=== PATIENT | female | born 1980 | race Caucasian/White ===

== ENCOUNTER 2019-03-11 20:23 | Inpatient (IN) | payer SELFPAY ==
[2019-03-11 21:10] VITALS: BMI 25.9
--- NOTE | 2019-03-11 23:54 | HP ---
COWS - Scale Resting Pulse: 0= [place] 80 or Below Sweatin=Flushed/Facial Moisture Restless Observation: 0= Sits Still Pupil Size: 0= Normal to Room Light Bone or Joint Aches: 4=Acute Joint/Muscle Pain Runny Nose/ Eye Tearin= Runny Nose/Eyes GI Upset > 30mins: 3= Vomiting/Diarrhea (vomiting x 6, diarrhea) Tremor Observation: 2= Slight Tremor Visible Yawning Observation: 0= None Anxiety or Irritability: 4=Extreme Anxiety Goose Flesh Skin: 0=Smooth Skin COWS Score: 17 CIWA Score Nausea/Vomitin Muscle Tremors: 3 Anxiety: 3 Agitation: 3 Paroxysmal Sweats: 1-Minimal Palms Moist Orientation: 1-Uncertain about Date Tacttile Disturbances: 0-None Auditory Disturbances: 0-None Visual Disturbances: 0-None Headache: 3-Moderate CIWA-Ar Total Score: 17 - Admission Criteria OASAS Guidelines: Admission for Medically Managed Detox: Requires at least one of the followin. CIWA greater than 12 2. Seizures within the past 24 hours 3. Delirium tremens within the past 24 hours 4. Hallucinations within the past 24 hours 5. Acute intervention needed for co occurring medical disorder 6. Acute intervention needed for co occurring psychiatric disorder 7. Severe withdrawal that cannot be handled at a lower level of care (continued vomiting, continued diarrhea, abnormal vital signs) requiring intravenous medication and/or fluids 8. Admission ROS [facility] Chief Complaint: Seeking admission to detox from alcohol and heroin Allergies/Adverse Reactions: Allergies Allergy/AdvReac Type Severity Reaction Status Date / Time Fish Containing Products Allergy Intermediate Rash Verified 03/11/19 22:34 No Known Drug Allergies Allergy Verified 03/11/19 22:34 History of Present Illness: 38 years old female with a long history of alcohol and heroin dependence is seeking admission to detox. Patient has been in previous detox and reports 5 years of sobriety. She has medical history of anemia, asthma and Hep C. She denies suicidal ideation at this time. Exam Limitations: No Limitations - Ebola screening Have you traveled outside of the country in the last 21 days: No Have you had contact with anyone from an Ebola affected area: No Have you been sick,other than usual withdrawal symptoms: No Do you have a fever: No - Review of Systems Constitutional: Chills, Loss of Appetite, Malaise, Changes in sleep EENT: reports: Blurred Vision, Sinus Pressure Respiratory: reports: No Symptoms reported Cardiac: reports: No Symptoms Reported GI: reports: Nausea, Poor Appetite, Poor Fluid Intake, Vomiting, Abdominal cramping : reports: No Symptoms Reported Musculoskeletal: reports: Back Pain, Muscle Pain Integumentary: reports: Dryness, Flushing Neuro: reports: Headache, Tremors Endocrine: reports: No Symptoms Reported Hematology: reports: No Symptoms Reported Psychiatric: reports: Mood/Affect Appropiate, Anxious Other Systems: Reviewed and Negative Patient History - Patient Medical History Hx Anemia: Yes (Not on medication) Hx Asthma: Yes (Albuterol) Hx Chronic Obstructive Pulmonary Disease (COPD): No Hx Cancer: No Hx Cardiac Disorders: No Hx Congestive Heart Failure: No Hx Hypertension: No Hx Hypercholesterolemia: No Hx Pacemaker: No HX Cerebrovascular Accident: No Hx Seizures: No Hx Dementia: No Hx Diabetes: No Hx Gastrointestinal Disorders: No Hx Liver Disease: No Hx Genitourinary Disorders: No Hx Sexually Transmitted Disorders: No Hx Renal Disease (ESRD): No Hx Thyroid Disease: No Hx Human Immunodeficiency Virus (HIV): No Hx Hepatitis C: Yes (NOT TREATMENT) Hx Depression: Yes (Not on medication) Hx Suicide Attempt: No (Denies suicidal ideation at this time) Hx Bipolar Disorder: No Hx Schizophrenia: No - Patient Surgical History Past Surgical History: Yes Hx Neurologic Surgery: No Hx Cataract Extraction: No Hx Cardiac Surgery: No Hx Lung Surgery: No Hx Breast Surgery: No Hx Breast Biopsy: No Hx Abdominal Surgery: No Hx Appendectomy: No Hx Cholecystectomy: Yes (AT 26 Y/O) Hx Genitourinary Surgery: No Hx Section: Yes (2003) Hx Orthopedic Surgery: No Anesthesia Reaction: No - PPD History Previous Implant?: Yes Documented Results: Negative w/proof Implanted On Prior R Admission?: Yes Date: 08/26/14 Results: 0 MM. PPD to be Administered?: Yes - Reproductive History Last Menstrual Period: 06/21/14 Patient : No - Smoking Cessation Smoking history: Current every day smoker Have you smoked in the past 12 months: Yes Aproximately how many cigarettes per day: 10 Hx Chewing Tobacco Use: No Initiated information on smoking cessation: Yes 'Breaking Loose' booklet given: 03/11/19 - Substance & Tx. History Hx Alcohol Use: Yes Hx Substance Use: Yes Substance Use Type: Alcohol, Cocaine, Opiates Hx Substance Use Treatment: Yes ([facility]) - Substances abused Heroin Substance route: Injection Frequency: Daily Amount used: 1 bundle Age of first use: 10 Date of last use: 03/11/19 Cocaine Substance route: Inhalation Frequency: Daily Amount used: 1 bundle Age of first use: 9 Date of last use: 03/11/19 Family Disease History - Family Disease History Family Disease History: Heart Disease: Mother (drug addict), Respiratory: Mother , Other: Father (drug addict), Mother Admission Physical Exam S - Vital Signs Vital Signs: Vital Signs - 24 hr 03/11/19 20:52 Temperature 96.9 F L Pulse Rate 75 Respiratory 16 Rate Blood Pressure 154/97 - Physical General Appearance: Yes: Moderate Distress, Tremorous, Irritable, Anxious HEENTM: Yes: EOMI, Normal ENT Inspection, Normal Voice, ASHLY Respiratory: Yes: Lungs Clear, Normal Breath Sounds, No Respiratory Distress Neck: Yes: Supple Breast: Yes: Breast Exam Deferred Cardiology: Yes: Regular Rhythm, Regular Rate Abdominal: Yes: Normal Bowel Sounds, Soft Genitourinary: Yes: Within Normal Limits Back: Yes: Normal Inspection Musculoskeletal: Yes: Back pain, Muscle Pain Extremities: Yes: Tremors Integumentary: Yes: Dry, Warm, Track Iglesias Lymphatic: Yes: Within Normal Limits - Addiitonal Findings: right neck - Diagnostic (1) Opioid dependence with withdrawal Current Visit: Yes Status: Chronic (2) Alcohol dependence with withdrawal Current Visit: Yes Status: Chronic Qualifiers: Complication of substance-induced condition: with unspecified complication Qualified Code(s): F10.239 - Alcohol dependence with withdrawal, unspecified (3) Anemia Current Visit: Yes Status: Chronic Qualifiers: Anemia type: unspecified type Qualified Code(s): D64.9 - Anemia, unspecified (4) Arthritis of knee Current Visit: No Status: Acute (5) Asthma Current Visit: Yes Status: Chronic Qualifiers: Asthma severity: mild Asthma persistence: intermittent (6) Cocaine dependence Current Visit: Yes Status: Chronic Qualifiers: Substance use status: uncomplicated Qualified Code(s): F14.20 - Cocaine dependence, uncomplicated (7) Hepatitis C Current Visit: Yes Status: Acute Qualifiers: Viral hepatitis chronicity: chronic (8) Nicotine dependence Current Visit: Yes Status: Chronic Qualifiers: Nicotine product type: cigarettes Substance use status: uncomplicated Qualified Code(s): F17.210 - Nicotine dependence, cigarettes, uncomplicated Cleared for Admission S - Detox or Rehab [facility] Level of Care: Medically Managed Detox Regimen/Protocol: Methadone/Librium Breathalyzer - Breathalyzer Breathalyzer: 0 Urine Drug Screen - Test Device Lot number: [id number] Expiration date: 11/17/20 - Control Is test valid?: Yes - Results Drug screen NEGATIVE: No Urine drug screen results: MIKKI-Cocaine, FEN-Fentanyl, MOP-Opiates, BZO- Benzodiazepines Inpatient Rehab Admission - Rehab Decision to Admit Inpatient rehab admission?: No
[2019-03-12] MEDS ORDERED: chlordiazePOXIDE HCL 25 MG CAPSULE PO ONE (00:06)
[2019-03-12] MEDS ORDERED: chlordiazePOXIDE HCL 25 MG CAPSULE PO PRN (00:06)
[2019-03-12] MEDS ORDERED: MAG HYDROX/AL HYDROX/SIMETH 30 ML UNIT-DOSE CUP PO PRN (00:06)
[2019-03-12] MEDS ORDERED: MAGNESIUM HYDROX 2400MG/30ML ORAL SUSPENSION 30 ML CUP PO PRN (00:06)
[2019-03-12] MEDS ORDERED: METHOCARBAMOL 500 MG TABLET PO PRN (00:06)
[2019-03-12] MEDS ORDERED: IBUPROFEN 400 MG TABLET (FP) PO PRN (00:06)
[2019-03-12] MEDS ORDERED: ACETAMINOPHEN 325 MG TABLET (FP) PO PRN ×2 (00:06)
[2019-03-12] MEDS ORDERED: BISMUTH SUBSALICYLATE 524 MG/30 ML UD PO PRN (00:06)
[2019-03-12] MEDS ORDERED: MENTHOL/PHENOL 1 EACH UD MM PRN (00:06)
[2019-03-12] MEDS ORDERED: MAGNESIUM CITRATE 300 ML BOTTLE PO PRN (00:06)
[2019-03-12] MEDS ORDERED: NICOTINE POLACRILEX 2 MG GUM BUC PRN (00:06)
[2019-03-12] MEDS ORDERED: cloNIDine HCL 0.1 MG TABLET PO PRN (00:06)
[2019-03-12] MEDS ORDERED: ALBUTEROL SO4 8 GM HFA INHALER IH PRN (00:13)
[2019-03-12] MEDS: chlordiazePOXIDE HCL 25 MG CAPSULE PO SCH ×4 (07:52→22:25)
[2019-03-12] MEDS: PRENATAL VITAMINS W/ FOLIC ACID TABLET (FP) PO SCH (10:35)
[2019-03-12] MEDS: NICOTINE 14 MG/24 HOURS TOPICAL PATCH TD SCH (10:35)
[2019-03-12] MEDS ORDERED: METHADONE HCL 10 MG TABLET (FOR DETOX USE ONLY) PO ONE (12:25)
--- NOTE | 2019-03-12 16:17 | PN ---
S CIWA - CIWA Score Nausea/Vomitin-Mild Nausea/No Vomiting Muscle Tremors: 3 Anxiety: 3 Agitation: 3 Paroxysmal Sweats: 3 Orientation: 0-Oriented Tacttile Disturbances: 0-None Auditory Disturbances: 0-None Visual Disturbances: 0-None Headache: 0-None Present CIWA-Ar Total Score: 13 BHS COWS - Scale Resting Pulse: 0= [place] 80 or Below Sweatin= Chills/Flushing Restless Observation: 3= Extraneous Movement Pupil Size: 0= Normal to Room Light Bone or Joint Aches: 2= Severe Diffuse Aches Runny Nose/ Eye Tearin= Runny Nose/Eyes GI Upset > 30mins: 2= Nausea/Diarrhea Tremor Observation of Outstretched Hands: 2= Slight Tremor Visible Yawning Observation: 0= None Anxiety or Irritability: 2=Irritable/Anxious Goose Flesh Skin: 0=Smooth Skin COWS Score: 14 BHS Progress Note (SOAP) Subjective: Patient stated his symptoms are controlled by medications and that he now experiences interrupted sleep. Objective: 03/12/19 16:16 Last Vital Signs Temp Pulse Resp BP Pulse Ox 98.1 F 75 18 132/82 03/12/19 14:52 03/12/19 14:52 03/12/19 14:52 03/12/19 14:52 No admission labs available for review Assessment: 03/12/19 16:16 Withdrawal symptoms Plan: Continue detox Encouraged PO water hydration
[2019-03-12] MEDS: THIAMINE HCL 100 MG TABLET (FP) PO SCH (21:30)
[2019-03-13] MEDS: chlordiazePOXIDE HCL 25 MG CAPSULE PO SCH ×4 (07:12→22:41)
[2019-03-13 09:53] LABS: HEMATOCRIT 35.1 % (32.4-45.2); HEMOGLOBIN 11.2 GM/dL (10.7-15.3); MCH 26.4 pg (25.7-33.7); MEAN CELL VOLUME 82.6 fl (80-96); MEAN PLT VOLUME 8.3 fl (7.5-11.1); PLATELET COUNT 299 K/MM3 (134-434); RBC 4.25 M/mm3 (3.60-5.2); RDW 16.7 % (11.6-15.6); WHITE BLOOD COUNT 5.7 K/mm3 (4.0-10.0)
[2019-03-13] MEDS ORDERED: METHADONE HCL 10 MG TABLET (FOR DETOX USE ONLY) PO ONE (10:00)
[2019-03-13] MEDS: PRENATAL VITAMINS W/ FOLIC ACID TABLET (FP) PO SCH (10:31)
[2019-03-13] MEDS: NICOTINE 14 MG/24 HOURS TOPICAL PATCH TD SCH (10:31)
[2019-03-13 10:35] LABS: ALBUMIN 2.6 g/dl (3.4-5.0); BILIRUBIN,TOTAL 0.2 mg/dL (0.2-1); CALCIUM 7.8 mg/dL (8.5-10.1); CREATININE 0.6 mg/dL (0.55-1.3); TOT PROT 5.9 g/dl (6.4-8.2)
--- NOTE | 2019-03-13 12:04 | PN ---
[facility] CIWA - CIWA Score Nausea/Vomitin-No Nausea/No Vomiting Muscle Tremors: 3 Anxiety: 3 Agitation: 3 Paroxysmal Sweats: 3 Orientation: 0-Oriented Tacttile Disturbances: 0-None Auditory Disturbances: 0-None Visual Disturbances: 0-None Headache: 0-None Present CIWA-Ar Total Score: 12 BHS COWS - Scale Resting Pulse: 0= [place] 80 or Below Sweatin=Flushed/Facial Moisture Restless Observation: 1= Difficult to Sit Still Pupil Size: 0= Normal to Room Light Bone or Joint Aches: 2= Severe Diffuse Aches Runny Nose/ Eye Tearin= Nasal Congestion GI Upset > 30mins: 0= None Tremor Observation of Outstretched Hands: 1= Tremor [place], Not Seen Yawning Observation: 2= >3x During Session Anxiety or Irritability: 2=Irritable/Anxious Goose Flesh Skin: 0=Smooth Skin COWS Score: 11 S Progress Note (SOAP) Subjective: restless sweats agitation interrupted sleep body aches Objective: 03/13/19 12:03 Vital Signs Temperature 96.8 F L 03/13/19 10:50 Pulse Rate 63 03/13/19 10:50 Respiratory Rate 18 03/13/19 10:50 Blood Pressure 118/72 03/13/19 10:50 O2 Sat by Pulse Oximetry (%) Laboratory Tests 03/11/19 03/13/19 03/13/19 22:14 07:50 07:50 WBC 5.7 RBC 4.25 Hgb 11.2 Hct 35.1 MCV 82.6 MCH 26.4 D MCHC 32.0 RDW 16.7 H Plt Count 299 D MPV 8.3 Sodium 142 Potassium 4.0 Chloride 111 H Carbon Dioxide 25 Anion Gap 5 L BUN 10 Creatinine 0.6 Est GFR (CKD-EPI)AfAm 132.14 Est GFR (CKD-EPI)NonAf 114.01 Random Glucose 86 Calcium 7.8 L Total Bilirubin 0.2 AST 81 H ALT 31 Alkaline Phosphatase 101 Total Protein 5.9 L Albumin 2.6 L POC Urine HCG, Qual Negative RPR Titer 03/13/19 07:50 WBC RBC Hgb Hct MCV MCH MCHC RDW Plt Count MPV Sodium Potassium Chloride Carbon Dioxide Anion Gap BUN Creatinine Est GFR (CKD-EPI)AfAm Est GFR (CKD-EPI)NonAf Random Glucose Calcium Total Bilirubin AST ALT Alkaline Phosphatase Total Protein Albumin POC Urine HCG, Qual RPR Titer Nonreactive labs noted aaox3 ambulating no acute distress Assessment: 03/13/19 12:04 withdrawal sx Plan: continue detox increase fluids
[2019-03-13] MEDS: MELATONIN 5 MG TABLETS PO PRN (22:41)
[2019-03-13] MEDS: THIAMINE HCL 100 MG TABLET (FP) PO SCH (22:43)
[2019-03-14] MEDS ORDERED: chlordiazePOXIDE HCL 10 MG CAPSULE PO PRN (05:00)
[2019-03-14] MEDS: chlordiazePOXIDE HCL 10 MG CAPSULE PO SCH ×4 (05:35→22:14)
[2019-03-14] MEDS ORDERED: METHADONE HCL 10 MG TABLET (FOR DETOX USE ONLY) PO ONE (10:00)
[2019-03-14] MEDS: PRENATAL VITAMINS W/ FOLIC ACID TABLET (FP) PO SCH (10:53)
[2019-03-14] MEDS: NICOTINE 14 MG/24 HOURS TOPICAL PATCH TD SCH (10:53)
--- NOTE | 2019-03-14 11:01 | PN ---
BHS Progress Note (SOAP) Subjective: irritable agitation sweats interrupted sleep body aches Objective: 03/14/19 11:03 Vital Signs Temperature 98.1 F 03/14/19 09:38 Pulse Rate 64 03/14/19 09:38 Respiratory Rate 18 03/14/19 09:38 Blood Pressure 111/57 L 03/14/19 09:38 O2 Sat by Pulse Oximetry (%) Laboratory Tests 03/11/19 03/13/19 03/13/19 22:14 07:50 07:50 WBC 5.7 RBC 4.25 Hgb 11.2 Hct 35.1 MCV 82.6 MCH 26.4 D MCHC 32.0 RDW 16.7 H Plt Count 299 D MPV 8.3 Sodium 142 Potassium 4.0 Chloride 111 H Carbon Dioxide 25 Anion Gap 5 L BUN 10 Creatinine 0.6 Est GFR (CKD-EPI)AfAm 132.14 Est GFR (CKD-EPI)NonAf 114.01 Random Glucose 86 Calcium 7.8 L Total Bilirubin 0.2 AST 81 H ALT 31 Alkaline Phosphatase 101 Total Protein 5.9 L Albumin 2.6 L POC Urine HCG, Qual Negative RPR Titer 03/13/19 07:50 WBC RBC Hgb Hct MCV MCH MCHC RDW Plt Count MPV Sodium Potassium Chloride Carbon Dioxide Anion Gap BUN Creatinine Est GFR (CKD-EPI)AfAm Est GFR (CKD-EPI)NonAf Random Glucose Calcium Total Bilirubin AST ALT Alkaline Phosphatase Total Protein Albumin POC Urine HCG, Qual RPR Titer Nonreactive aaox3 ambulating no acute distress Assessment: 03/14/19 11:03 withdrawal sx Plan: continue detox increase fluids
[2019-03-14] MEDS: THIAMINE HCL 100 MG TABLET (FP) PO SCH (22:14)
[2019-03-14] MEDS: MELATONIN 5 MG TABLETS PO PRN (22:14)
[2019-03-15] MEDS: chlordiazePOXIDE HCL 10 MG CAPSULE PO SCH ×2 (06:17→17:25)
[2019-03-15] MEDS ORDERED: METHADONE HCL 10 MG TABLET (FOR DETOX USE ONLY) PO ONE (10:00)
[2019-03-15] MEDS: PRENATAL VITAMINS W/ FOLIC ACID TABLET (FP) PO SCH (10:20)
[2019-03-15] MEDS: NICOTINE 14 MG/24 HOURS TOPICAL PATCH TD SCH (10:20)
--- NOTE | 2019-03-15 11:21 | PN ---
BHS Progress Note (SOAP) Subjective: irritable agitation sweats Objective: 03/15/19 11:21 Vital Signs Temperature 98.3 F 03/15/19 09:09 Pulse Rate 64 03/15/19 09:09 Respiratory Rate 18 03/15/19 09:09 Blood Pressure 110/70 03/15/19 09:09 O2 Sat by Pulse Oximetry (%) aaox3 ambulating no acute distress Assessment: 03/15/19 11:22 mild withdrawal sx Plan: continue detox increase fluids d/c in am
[2019-03-15] MEDS: hydrOXYzine PAMOATE 25 MG CAPSULE (FP) PO PRN ×2 (14:07→22:39)
[2019-03-15] MEDS ORDERED: IBUPROFEN 600 MG TABLET (FP) PO PRN (17:57)
[2019-03-15] MEDS: THIAMINE HCL 100 MG TABLET (FP) PO SCH (22:39)
[2019-03-15] MEDS: MELATONIN 5 MG TABLETS PO PRN (22:39)
[2019-03-16] MEDS ORDERED: METHADONE HCL 5 MG TABLET (FOR DETOX USE ONLY) PO ONE (06:00)
[2019-03-16] MEDS: chlordiazePOXIDE HCL 10 MG CAPSULE PO SCH (06:09)
--- NOTE | 2019-03-16 09:22 | DS ---
[facility] Detox Discharge Summary Admission Date: 03/12/19 Discharge Date: 03/16/19 - History Present History: Alcohol Dependence, Cocaine Dependence, Opioid Dependence, Sedative Dependence - Physical Exam Results Vital Signs: Vital Signs Temperature 96.1 F L 03/16/19 07:52 Pulse Rate 74 03/16/19 07:52 Respiratory Rate 16 03/16/19 07:52 Blood Pressure 121/66 03/16/19 07:52 O2 Sat by Pulse Oximetry (%) - Treatment Hospital Course: Detox Protocol Followed, Detoxed Safely, Responded well, Discharged Condition Good, Rehab Referral Accepted - Medication Discharge Medications: Ambulatory Orders Albuterol Sulfate Inhaler - [Ventolin HFA Inhaler -] 2 inh IH Q4H PRN #0 inh 01/27 Sertraline HCl [Zoloft -] 50 mg PO DAILY #30 tablet 08/25/14 traZODone HCL [Desyrel -] 50 mg PO HS #30 tablet 08/25/14 - Diagnosis (1) Hepatitis C Current Visit: Yes Status: Acute Qualifiers: Viral hepatitis chronicity: chronic (2) Alcohol dependence with withdrawal Current Visit: Yes Status: Chronic Qualifiers: Complication of substance-induced condition: with unspecified complication Qualified Code(s): F10.239 - Alcohol dependence with withdrawal, unspecified (3) Anemia Current Visit: Yes Status: Chronic Qualifiers: Anemia type: unspecified type Qualified Code(s): D64.9 - Anemia, unspecified (4) Asthma Current Visit: Yes Status: Chronic Qualifiers: Asthma severity: mild Asthma persistence: intermittent (5) Cocaine dependence Current Visit: Yes Status: Chronic Qualifiers: Substance use status: uncomplicated Qualified Code(s): F14.20 - Cocaine dependence, uncomplicated (6) Nicotine dependence Current Visit: Yes Status: Chronic Qualifiers: Nicotine product type: cigarettes Substance use status: uncomplicated Qualified Code(s): F17.210 - Nicotine dependence, cigarettes, uncomplicated (7) Opioid dependence with withdrawal Current Visit: Yes Status: Chronic (8) Arthritis of knee Current Visit: No Status: Acute (9) MDD (major depressive disorder) Current Visit: No Status: Acute (10) Sedative dependence Current Visit: No Status: Acute - AMA Did Patient Leave Against Medical Advice: No ([facility] outpatient rehab.)
[2019-03-16 10:02] VITALS: BP 102/66; PULSE 60; TEMP 98.1
== END 2019-03-16 09:32 | disposition home or self-care (01) | DRG 773 ==
LOC: YASAS 20:23 → Y6N 03-12 00:03
PROVIDERS: ADMIT Surgery; ATTEND Surgery
PROC: HZ2ZZZZ Detoxification Services for Substance Abuse Treatment (ICD-10-PCS; principal; 2019-03-12)
DX: F11.23 Opioid dependence with withdrawal (principal); F10.230 Alcohol dependence with withdrawal, uncomplicated; F13.230 Sedative, hypnotic or anxiolytic dependence with withdrawal, uncomplicated; F14.20 Cocaine dependence, uncomplicated; F17.210 Nicotine dependence, cigarettes, uncomplicated; F33.9 Major depressive disorder, recurrent, unspecified; D64.9 Anemia, unspecified; J45.22 Mild intermittent asthma with status asthmaticus; B18.2 Chronic viral hepatitis C
CPT/HCPCS: 36415; 80053; 81025; 85027; 86593

== ENCOUNTER 2019-09-17 10:21 | Inpatient (IN) | payer OTHER ==
[2019-09-17 11:20] VITALS: BMI 25.3
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
[2019-09-17] MEDS ORDERED: MAGNESIUM HYDROX 2400MG/30ML ORAL SUSPENSION 30 ML CUP PO PRN (12:03)
[2019-09-17] MEDS ORDERED: MAGNESIUM CITRATE 300 ML BOTTLE PO PRN (12:03)
[2019-09-17] MEDS ORDERED: MAG HYDROX/AL HYDROX/SIMETH 30 ML UNIT-DOSE CUP PO PRN (12:03)
[2019-09-17] MEDS ORDERED: ACETAMINOPHEN 325 MG TABLET (FP) PO PRN ×2 (12:03)
[2019-09-17] MEDS ORDERED: MENTHOL/PHENOL 1 EACH UD MM PRN (12:03)
[2019-09-17] MEDS ORDERED: MELATONIN 5 MG TABLETS PO PRN (12:03)
[2019-09-17] MEDS ORDERED: BISMUTH SUBSALICYLATE 524 MG/30 ML UD PO PRN (12:03)
[2019-09-17] MEDS ORDERED: ALBUTEROL SO4 8 GM HFA INHALER IH PRN (12:04)
[2019-09-17] MEDS: diazePAM 5 MG TABLET PO SCH ×2 (12:59→22:09)
[2019-09-17] MEDS: BUPRENORPHINE/NALOXONE 8 MG/2 MG FILM PACKET SL SCH (13:00)
[2019-09-17] MEDS: THIAMINE HCL 100 MG TABLET (FP) PO SCH (22:09)
[2019-09-17] MEDS: IBUPROFEN 400 MG TABLET (FP) PO PRN (22:11)
[2019-09-17] MEDS: hydrOXYzine PAMOATE 25 MG CAPSULE (FP) PO PRN (22:11)
[2019-09-18] MEDS: diazePAM 5 MG TABLET PO SCH (05:26)
[2019-09-18] MEDS: IBUPROFEN 400 MG TABLET (FP) PO PRN ×2 (05:27→17:06)
[2019-09-18] MEDS ORDERED: diazePAM 5 MG TABLET PO SCH (06:00)
[2019-09-18 10:11] LABS: HEMATOCRIT 33.7 % (32.4-45.2); HEMOGLOBIN 10.9 GM/dL (10.7-15.3); MCH 28.4 pg (25.7-33.7); MCHC 32.3 g/dl (32.0-36.0); MEAN PLT VOLUME 8.1 fl (7.5-11.1); PLATELET COUNT 311 K/MM3 (134-434); RBC 3.83 M/mm3 (3.60-5.2); RDW 15.1 % (11.6-15.6)
--- NOTE | 2019-09-18 10:12 | PN ---
S CIWA - CIWA Score Nausea/Vomitin-Mild Nausea/No Vomiting Muscle Tremors: 3 Anxiety: 4-Mod. Anxious/Guarded Agitation: 3 Paroxysmal Sweats: 1-Minimal Palms Moist Orientation: 0-Oriented Tacttile Disturbances: 0-None Auditory Disturbances: 0-None Visual Disturbances: 0-None Headache: 1-Very Mild CIWA-Ar Total Score: 13 B[facility] Progress Note (SOAP) Subjective: 39 years old female admitted on 09/17/19 for alcohol withdrawal sx management treated with valium detox regimen patient is in suboxone program last fill 21 days of suboxone 8-2mg sl tid on positive suboxone urine tox resume suboxone 8-2mg sl od resting on bed feeling tired ate breakfast tolerated food and fluid well Objective: 09/18/19 10:12 Vital Signs Temperature 96.9 F L 09/18/19 09:08 Pulse Rate 80 09/18/19 09:08 Respiratory Rate 18 09/18/19 09:08 Blood Pressure 118/62 09/18/19 09:08 O2 Sat by Pulse Oximetry (%) 09/18/19 10:12 lab pending Assessment: 09/18/19 10:12alcohol withdrawal sx management suboxone maintenance program Plan: continue valium detox regimen suboxone 8-2mg sl once daily monitoring toleration may increase as per patient tolerance
[2019-09-18] MEDS: BUPRENORPHINE/NALOXONE 8 MG/2 MG FILM PACKET SL SCH (10:26)
[2019-09-18] MEDS: PRENATAL VITAMINS W/ FOLIC ACID TABLET (FP) PO SCH (10:26)
[2019-09-18] MEDS: diazePAM 5 MG TABLET PO PRN ×2 (10:28→21:55)
[2019-09-18 10:58] LABS: ALBUMIN 2.6 g/dl (3.4-5.0); BILIRUBIN,TOTAL 0.2 mg/dL (0.2-1); BLOOD UREA NITROGEN 11.5 mg/dL (7-18); CALCIUM 8.1 mg/dL (8.5-10.1); CREATININE 0.8 mg/dL (0.55-1.3); POTASSIUM 3.3 mmol/L (3.5-5.1); TOT PROT 6.1 g/dl (6.4-8.2)
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
[2019-09-18] MEDS: CEPHALEXIN MONOHYDRATE 500 MG CAPSULE (UD) PO SCH ×2 (13:42→21:55)
[2019-09-18] MEDS: hydrOXYzine PAMOATE 25 MG CAPSULE (FP) PO PRN (17:11)
[2019-09-18] MEDS ORDERED: diazePAM 5 MG TABLET PO ONE (18:00)
[2019-09-18] MEDS: THIAMINE HCL 100 MG TABLET (FP) PO SCH (21:55)
[2019-09-18] MEDS ORDERED: traZODone HCL 50 MG TABLET (FP) PO SCH (22:00)
[2019-09-19] MEDS ORDERED: diazePAM 5 MG TABLET PO ONE (06:00)
[2019-09-19 09:20] VITALS: BP 98/67; PULSE 84; TEMP 97.6
[2019-09-19] MEDS: PRENATAL VITAMINS W/ FOLIC ACID TABLET (FP) PO SCH (10:57)
[2019-09-19] MEDS: BUPRENORPHINE/NALOXONE 8 MG/2 MG FILM PACKET SL SCH (10:57)
[2019-09-19] MEDS: CEPHALEXIN MONOHYDRATE 500 MG CAPSULE (UD) PO SCH (10:57)
--- NOTE | 2019-09-19 11:27 | DS ---
[facility] Detox Discharge Summary Admission Date: 09/17/19 Discharge Date: 09/19/19 - History Present History: Alcohol Dependence Additional Comments: 39 years old female admitted on 09/17/19 for alcohol withdrawal sx management treated with valium detox regimen respiratory clear lung bilaterally on auscultation skin warm and dry ate breakfast no trouble chewing swallowing ambulating from bed to bathroom steady gait - Physical Exam Results Vital Signs: Vital Signs Temperature 97.6 F 09/19/19 09:19 Pulse Rate 84 09/19/19 09:19 Respiratory Rate 16 09/19/19 09:19 Blood Pressure 98/67 09/19/19 09:19 O2 Sat by Pulse Oximetry (%) Pertinent Admission Physical Exam Findings: alcohol withdrawal sx Laboratory Last Values WBC 7.0 K/mm3 (4.0-10.0) 09/18/19 07:30 RBC 3.83 M/mm3 (3.60-5.2) 09/18/19 07:30 Hgb 10.9 GM/dL (10.7-15.3) 09/18/19 07:30 Hct 33.7 % (32.4-45.2) 09/18/19 07:30 MCV 88.0 fl (80-96) 09/18/19 07:30 MCH 28.4 pg (25.7-33.7) 09/18/19 07:30 MCHC 32.3 g/dl (32.0-36.0) 09/18/19 07:30 RDW 15.1 % (11.6-15.6) 09/18/19 07:30 Plt Count 311 K/MM3 (134-434) 09/18/19 07:30 MPV 8.1 fl (7.5-11.1) 09/18/19 07:30 Sodium 142 mmol/L (136-145) 09/18/19 07:30 Potassium 3.3 mmol/L (3.5-5.1) L 09/18/19 07:30 Chloride 104 mmol/L (98-107) 09/18/19 07:30 Carbon Dioxide 32 mmol/L (21-32) 09/18/19 07:30 Anion Gap 6 MMOL/L (8-16) L 09/18/19 07:30 BUN 11.5 mg/dL (7-18) 09/18/19 07:30 Creatinine 0.8 mg/dL (0.55-1.3) 09/18/19 07:30 Est GFR (CKD-EPI)AfAm 106.13 09/18/19 07:30 Est GFR (CKD-EPI)NonAf 91.57 09/18/19 07:30 Random Glucose 74 mg/dL (74-106) 09/18/19 07:30 Calcium 8.1 mg/dL (8.5-10.1) L 09/18/19 07:30 Total Bilirubin 0.2 mg/dL (0.2-1) 09/18/19 07:30 AST 71 U/L (15-37) H 09/18/19 07:30 ALT 20 U/L (13-61) 09/18/19 07:30 Alkaline Phosphatase 87 U/L (45-117) 09/18/19 07:30 Total Protein 6.1 g/dl (6.4-8.2) L 09/18/19 07:30 Albumin 2.6 g/dl (3.4-5.0) L 09/18/19 07:30 POC Urine HCG, Qual Negative 09/17/19 11:25 HIV 1&2 Antibody Screen Negative 09/18/19 07:30 HIV P24 Antigen Negative 09/18/19 07:30 lab noted repeat K+ continue ca++ supplement - Treatment Hospital Course: Detox Protocol Followed, Detoxed Safely, Responded well, Discharged Condition Good, Rehab Referral Accepted Patient has Accepted [facility] - Medication Discharge Medications: Ambulatory Orders Albuterol Sulfate Inhaler - [Ventolin HFA Inhaler -] 2 inh IH Q4H PRN #0 inh 01/27 Sertraline HCl [Zoloft -] 50 mg PO DAILY #30 tablet 08/25/14 traZODone HCL [Desyrel -] 50 mg PO HS #30 tablet 08/25/14 Buprenorphine/Naloxone [Suboxone 8Mg/2Mg Sl Film -] 1 each SL DAILY 09/17/19 Gabapentin [Neurontin -] 300 mg PO Q8H 09/17/19 - Diagnosis (1) Alcohol dependence with withdrawal Current Visit: Yes Status: Acute Qualifiers: Complication of substance-induced condition: with unspecified complication Qualified Code(s): F10.239 - Alcohol dependence with withdrawal, unspecified (2) Nicotine dependence Current Visit: Yes Status: Acute Qualifiers: Nicotine product type: cigarettes Substance use status: in withdrawal Qualified Code(s): F17.213 - Nicotine dependence, cigarettes, with withdrawal (3) Substance induced mood disorder Current Visit: Yes Status: Suspected (4) Hepatitis C Current Visit: Yes Status: Chronic Qualifiers: Viral hepatitis chronicity: carrier Qualified Code(s): B18.2 - Chronic viral hepatitis C (5) Asthma Current Visit: Yes Status: Chronic Qualifiers: Asthma severity: mild Asthma persistence: intermittent Asthma complication type: with status asthmaticus Qualified Code(s): J45.22 - Mild intermittent asthma with status asthmaticus - AMA Did Patient Leave Against Medical Advice: No CIWA Score - CIWA Score Nausea/Vomitin-No Nausea/No Vomiting Muscle Tremors: 2 Anxiety: 3 Agitation: 2 Paroxysmal Sweats: No Perspiration Orientation: 0-Oriented Tacttile Disturbances: 0-None Auditory Disturbances: 0-None Visual Disturbances: 0-None Headache: 0-None Present CIWA-Ar Total Score: 7
== END 2019-09-19 12:34 | disposition other institution (70) | DRG 773 ==
LOC: YASAS 10:21 → Y3N 12:17
PROVIDERS: ADMIT Allergy & Immunology; ATTEND Allergy & Immunology
PROC: HZ2ZZZZ Detoxification Services for Substance Abuse Treatment (ICD-10-PCS; principal; 2019-09-17)
DX: F10.230 Alcohol dependence with withdrawal, uncomplicated (principal); F11.20 Opioid dependence, uncomplicated; F14.20 Cocaine dependence, uncomplicated; F17.210 Nicotine dependence, cigarettes, uncomplicated; F19.24 Other psychoactive substance dependence with psychoactive substance-induced mood disorder; F32.9 Major depressive disorder, single episode, unspecified; J45.22 Mild intermittent asthma with status asthmaticus; G47.00 Insomnia, unspecified; D64.9 Anemia, unspecified; B18.2 Chronic viral hepatitis C; Z96.653 Presence of artificial knee joint, bilateral; Z90.49 Acquired absence of other specified parts of digestive tract; Z91.013 Allergy to seafood; Z91.19 Patient's noncompliance with other medical treatment and regimen
CPT/HCPCS: 36415; 80053; 81025; 85027; 86593; 87389

== ENCOUNTER 2019-09-19 12:47 | Inpatient (IN) | payer OTHER ==
--- NOTE | 2019-09-19 11:34 | HP ---
[facility] Rehab Assess/Revision - Admission History Admitted to Rehab from: [facility] Date of Admission to Rehab: 09/19/19 - Findings Detox History & Physical reviewed: Yes Concur with findings: Yes Comments/Additional Findings: transferred from detox to rehab admission as per protocol Inpatient Rehab Admission - Rehab Decision to Admit Inpatient rehab admission?: Yes - Initial Determination Are CD services needed?: Yes Free of communicable disease: Yes Not in need of hospitalization: Yes - Rehab Admission Criteria Previous failed treatment: Yes Poor recovery environment: Yes Comorbidities: Yes Lacks judgement: Yes Patient is meeting Inpatient Rehab admission criteria:: Yes
[~2019-09-19 12:47] MED LIST: ACETAMINOPHEN 325 MG TABLET (FP) PO PRN; ALBUTEROL SO4 8 GM HFA INHALER IH PRN; LOPERAMIDE HCL 2 MG CAPSULE PO PRN; MAG HYDROX/AL HYDROX/SIMETH 30 ML UNIT-DOSE CUP PO PRN; MAGNESIUM CITRATE 300 ML BOTTLE PO PRN; MAGNESIUM HYDROX 2400MG/30ML ORAL SUSPENSION 30 ML CUP PO PRN; MENTHOL/PHENOL 1 EACH UD MM PRN; P-EPHED 60MG/TRIPROLIDI 2.5MG TABLET PO PRN; guaiFENesin 200 MG/10 ML 10 ML UNIT-DOSE CUPS PO PRN
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
[2019-09-19] MEDS: THIAMINE HCL 100 MG TABLET (FP) PO SCH (21:42)
[2019-09-19] MEDS: traZODone HCL 50 MG TABLET (FP) PO SCH (21:43)
[2019-09-19] MEDS: TOLNAFTATE 1% CREAM 15 GM TUBE TP SCH (21:43)
[2019-09-19] MEDS: MELATONIN 5 MG TABLETS PO PRN (21:45)
[2019-09-19] MEDS: CALCIUM 250MG/VIT-D 125 UNITS 1 COMBO TABLET PO SCH (21:46)
[2019-09-20] MEDS: TOLNAFTATE 1% CREAM 15 GM TUBE TP SCH ×2 (09:59→21:30)
[2019-09-20] MEDS: PRENATAL VITAMINS W/ FOLIC ACID TABLET (FP) PO SCH (09:59)
[2019-09-20] MEDS: BUPRENORPHINE/NALOXONE 8 MG/2 MG FILM PACKET SL SCH (09:59)
[2019-09-20] MEDS: IBUPROFEN 400 MG TABLET (FP) PO PRN (10:01)
[2019-09-20] MEDS ORDERED: PT OWN MED DRAWER 7, Y5N ONE ×2 (10:02→15:48)
[2019-09-20] MEDS: CALCIUM 250MG/VIT-D 125 UNITS 1 COMBO TABLET PO SCH ×2 (11:00→21:30)
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
[2019-09-20] MEDS: traZODone HCL 50 MG TABLET (FP) PO SCH (21:28)
[2019-09-20] MEDS: THIAMINE HCL 100 MG TABLET (FP) PO SCH (21:28)
[2019-09-21] MEDS ORDERED: PT OWN MED DRAWER 7, Y5N ONE (08:39)
[2019-09-21] MEDS: CALCIUM 250MG/VIT-D 125 UNITS 1 COMBO TABLET PO SCH ×2 (09:26→21:34)
[2019-09-21] MEDS: PRENATAL VITAMINS W/ FOLIC ACID TABLET (FP) PO SCH (09:26)
[2019-09-21] MEDS: BUPRENORPHINE/NALOXONE 8 MG/2 MG FILM PACKET SL SCH (09:27)
[2019-09-21] MEDS: TOLNAFTATE 1% CREAM 15 GM TUBE TP SCH ×2 (09:28→21:35)
[2019-09-21] MEDS: IBUPROFEN 400 MG TABLET (FP) PO PRN (18:16)
[2019-09-21] MEDS: MELATONIN 5 MG TABLETS PO PRN (21:32)
[2019-09-21] MEDS: THIAMINE HCL 100 MG TABLET (FP) PO SCH (21:32)
[2019-09-21] MEDS: traZODone HCL 50 MG TABLET (FP) PO SCH (21:32)
[2019-09-22] MEDS ORDERED: PT OWN MED DRAWER 7, Y5N ONE ×2 (08:13→22:29)
[2019-09-22] MEDS: CALCIUM 250MG/VIT-D 125 UNITS 1 COMBO TABLET PO SCH ×2 (09:55→21:48)
[2019-09-22] MEDS: PRENATAL VITAMINS W/ FOLIC ACID TABLET (FP) PO SCH (09:58)
[2019-09-22] MEDS: BUPRENORPHINE/NALOXONE 8 MG/2 MG FILM PACKET SL SCH (09:58)
[2019-09-22] MEDS: TOLNAFTATE 1% CREAM 15 GM TUBE TP SCH ×2 (09:58→21:48)
[2019-09-22] MEDS: IBUPROFEN 400 MG TABLET (FP) PO PRN ×2 (10:00→21:52)
[2019-09-22] MEDS: THIAMINE HCL 100 MG TABLET (FP) PO SCH (21:48)
[2019-09-22] MEDS: traZODone HCL 50 MG TABLET (FP) PO SCH (21:48)
[2019-09-23] MEDS: PRENATAL VITAMINS W/ FOLIC ACID TABLET (FP) PO SCH (09:43)
[2019-09-23] MEDS: BUPRENORPHINE/NALOXONE 8 MG/2 MG FILM PACKET SL SCH (09:43)
[2019-09-23] MEDS: TOLNAFTATE 1% CREAM 15 GM TUBE TP SCH ×2 (09:43→21:26)
[2019-09-23] MEDS: CALCIUM 250MG/VIT-D 125 UNITS 1 COMBO TABLET PO SCH ×2 (09:43→21:26)
[2019-09-23] MEDS: IBUPROFEN 400 MG TABLET (FP) PO PRN ×2 (09:45→21:25)
[2019-09-23] MEDS: traZODone HCL 50 MG TABLET (FP) PO SCH (21:23)
[2019-09-23] MEDS: THIAMINE HCL 100 MG TABLET (FP) PO SCH (21:24)
[2019-09-23] MEDS: MELATONIN 5 MG TABLETS PO PRN (21:24)
[2019-09-24] MEDS ORDERED: PT OWN MED DRAWER 7, Y5N ONE ×2 (09:08→18:31)
[2019-09-24] MEDS: PRENATAL VITAMINS W/ FOLIC ACID TABLET (FP) PO SCH (09:57)
[2019-09-24] MEDS: BUPRENORPHINE/NALOXONE 8 MG/2 MG FILM PACKET SL SCH (09:58)
[2019-09-24] MEDS: CALCIUM 250MG/VIT-D 125 UNITS 1 COMBO TABLET PO SCH ×2 (09:58→21:11)
[2019-09-24] MEDS: TOLNAFTATE 1% CREAM 15 GM TUBE TP SCH ×2 (09:58→21:12)
[2019-09-24] MEDS: IBUPROFEN 400 MG TABLET (FP) PO PRN ×2 (09:59→21:13)
[2019-09-24] MEDS: THIAMINE HCL 100 MG TABLET (FP) PO SCH (21:11)
[2019-09-24] MEDS: MELATONIN 5 MG TABLETS PO PRN (21:11)
[2019-09-24] MEDS: traZODone HCL 50 MG TABLET (FP) PO SCH (21:12)
[2019-09-25] MEDS ORDERED: hydrOXYzine PAMOATE 25 MG CAPSULE (FP) PO PRN (01:36)
[2019-09-25] MEDS: IBUPROFEN 400 MG TABLET (FP) PO PRN ×2 (07:40→21:50)
[2019-09-25] MEDS ORDERED: PT OWN MED DRAWER 7, Y5N ONE ×2 (08:34→19:12)
[2019-09-25] MEDS: TOLNAFTATE 1% CREAM 15 GM TUBE TP SCH ×2 (09:42→21:50)
[2019-09-25] MEDS: BUPRENORPHINE/NALOXONE 8 MG/2 MG FILM PACKET SL SCH (09:42)
[2019-09-25] MEDS: CALCIUM 250MG/VIT-D 125 UNITS 1 COMBO TABLET PO SCH ×2 (09:42→21:49)
[2019-09-25] MEDS: PRENATAL VITAMINS W/ FOLIC ACID TABLET (FP) PO SCH (09:42)
--- NOTE | 2019-09-25 13:01 | PN ---
S Progress Note Note: Patient c/o b/l shoulder pain due to chronic arthritis. States pain level 8/10- dull [id number]. Vital Signs Period Temp Pulse Resp BP Sys/Vidal Pulse Ox Last 24 Hr 97.9 F 76 18 109/70 Laboratory Tests 09/20/19 09:00 Potassium 4.0 AST 92 H PE: alert and oriented x 3 skin warm and dry +perrla, eoms intact bl ext no swelling of upper extremities, +rom however c/o discomfort with hyperextension of arms in circular motion ble trace edema, amb ad jericho, full rom A/P: shoulder pain d/t OA will order lidocaine patch to both shoulders daily and remove hs monitor clinically
[2019-09-25] MEDS: LIDOCAINE 5% TOPICAL PATCH TP SCH (14:06)
[2019-09-25] MEDS: LIDOCAINE PATCH REMOVAL MC SCH (21:49)
[2019-09-25] MEDS: THIAMINE HCL 100 MG TABLET (FP) PO SCH (21:49)
[2019-09-25] MEDS: traZODone HCL 50 MG TABLET (FP) PO SCH (21:49)
[2019-09-25] MEDS: MELATONIN 5 MG TABLETS PO PRN (21:50)
[2019-09-26] MEDS: PRENATAL VITAMINS W/ FOLIC ACID TABLET (FP) PO SCH (10:03)
[2019-09-26] MEDS: CALCIUM 250MG/VIT-D 125 UNITS 1 COMBO TABLET PO SCH ×2 (10:03→21:07)
[2019-09-26] MEDS: TOLNAFTATE 1% CREAM 15 GM TUBE TP SCH ×2 (10:04→21:07)
[2019-09-26] MEDS: LIDOCAINE 5% TOPICAL PATCH TP SCH (10:04)
[2019-09-26] MEDS: BUPRENORPHINE/NALOXONE 8 MG/2 MG FILM PACKET SL SCH (10:52)
[2019-09-26] MEDS ORDERED: COLLOIDAL OATMEAL 1 BAR EACH TP PRN (11:50)
--- NOTE | 2019-09-26 12:05 | PN ---
Psychiatric Progress Note Vital Signs: Vital Signs Period Temp Pulse Resp BP Sys/Vidal Pulse Ox Last 24 Hr 98.0 F 73 18-18 102/67 Date of Session: 09/26/19 Chief Complaint:: " I still can't sleep." HPI: Patient admitted to [facility] for alcohol and cocaine use disorder. Consultation ordered for insomnia. ROS: Patient is coherent, alert + oriented X3. Current Medications: Active Medications Generic Name Dose Route Start Last Admin Trade Name Estuardo PRN Reason Stop Dose Admin Acetaminophen 650 mg 09/19/19 11:34 09/25/19 01:55 Tylenol - PO 650 mg Q4H PRN Administration FEVER Al Hydroxide/Mg Hydroxide 30 ml 09/19/19 11:34 Mylanta Oral Suspension - PO Q6H PRN DYSPEPSIA Albuterol Sulfate 2 puff 09/19/19 11:35 Ventolin Hfa Inhaler - IH Q4H PRN SHORTNESS OF BREATH Buprenorphine/Naloxone 1 each 09/26/19 10:15 09/26/19 10:52 Suboxone 8 Mg/2 Mg Film Packet SL 10/03/19 10:14 1 each DAILY RAMBO Administration Calcium/Vitamin D 1 tab 09/19/19 22:00 09/26/19 10:03 Oscal 250 Mg+D - PO 1 tab BID RAMBO Administration Colloidal Oatmeal 1 applic 09/26/19 11:50 Aveeno Soap - TP DAILY PRN HYGEINE Eucalyptus/Menthol/Phenol/Sorbitol 1 each 09/19/19 11:34 Cepastat Lozenge - MM Q4H PRN SORE THROAT Guaifenesin 10 ml 09/19/19 11:34 Robitussin - PO Q6H PRN COUGH Hydroxyzine Pamoate 25 mg 09/25/19 01:36 09/25/19 01:56 Vistaril - PO 25 mg Q4H PRN Administration FOR ITCHING Ibuprofen 400 mg 09/19/19 11:34 09/25/19 21:50 Motrin - PO 400 mg Q6H PRN Administration Pain level 4-6 Lidocaine 2 patch 09/25/19 13:15 09/26/19 10:04 Lidoderm Patch - TP 2 patch DAILY RAMBO Administration Loperamide HCl 4 mg 09/19/19 11:34 Imodium - PO Q6H PRN DIARRHEA Magnesium Citrate 300 ml 09/19/19 11:34 Citroma - PO Q48H PRN CONSTIPATION Magnesium Hydroxide 30 ml 09/19/19 11:34 Milk Of Magnesia - PO DAILY PRN CONSTIPATION Melatonin 5 mg 09/19/19 22:00 09/25/19 21:50 Melatonin PO 5 mg HS PRN Administration INSOMNIA Miscellaneous 1 each 09/25/19 22:00 09/25/19 21:49 Lidoderm Patch Removal MC 1 each DAILY@2200 RAMBO Administration Multivit/Folic Acid/Iron 1 tab 09/20/19 10:00 09/26/19 10:03 Vitamins (Sjr) - PO 1 tab DAILY RAMBO Administration Pseudoephedrine/Triprolidine 1 combo 09/19/19 11:34 Actifed - PO TID PRN NASAL CONGESTION Thiamine HCl 100 mg 09/19/19 22:00 09/25/19 21:49 Vitamin B1 - PO 100 mg HS RAMBO Administration Tolnaftate 1 applic 09/19/19 22:00 09/26/19 10:04 Tinactin 1% Cream - TP 1 applic BID RAMBO Administration Trazodone HCl 50 mg 09/19/19 22:00 09/25/19 21:49 Desyrel - PO 50 mg HS RAMBO Administration Medication(s) Change(s): Yes. will d/c trazodone 50mg HS + Belsomra 10mg HS + Melatonin 10mg HS. Current Side Effect: No Lab tests ordered: No Lab tests reviewed: Yes Provider note:: Patient reports poor sleep despite accepting trazodone 50mg HS. States that the trazodone is ineffective. Will order Belsomra 10mg and Melatonin 10mg. Patient educated on the importance of proper sleep hygiene. Benefits and side effects discussed. Verbal consent given. Total face to face time:: 25 Mental Status Exam - Mental Status Exam Alert and Oriented to: Time, Place, Person Cognitive Function: Good Patient Appearance: Well Groomed Mood: Euthymic Affect: Mood Congruent Patient Behavior: Appropriate, Cooperative Speech Pattern: Clear, Appropriate Voice Loudness: Normal Thought Process: Goal Oriented Thought Disorder: Not Present Hallucinations: Denies Suicidal Ideation: Denies Homicidal Ideation: Denies Insight/Judgement: Poor Sleep: Poorly Appetite: Fair Muscle strength/Tone: Normal Gait/Station: Normal Psychiatric Treatment Plan - Problem List (1) Insomnia Current Visit: Yes (2) Alcohol use disorder Current Visit: Yes (3) Cocaine use disorder Current Visit: Yes (4) Mood disorder Current Visit: Yes (5) Nicotine dependence Current Visit: Yes Qualifiers: Nicotine product type: cigarettes Substance use status: in withdrawal Qualified Code(s): F17.213 - Nicotine dependence, cigarettes, with withdrawal (6) Substance induced mood disorder Current Visit: Yes
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
--- NOTE | 2019-09-26 14:21 | PN ---
S Progress Note (SOAP) Subjective: Please see my PrEP assessment. patient c/o itching and discharge from her vagina. PMHx of unprotected sex. Denies odor. Objective: Deferred Assessment: At risk for STI 09/26/19 14:19 Plan: u/a, urine culture, and GC/Chlamydia ordered. PrEP counselor will be notified to see patient about PrEP.
--- NOTE | 2019-09-26 14:28 | PN ---
S Progress Note (SOAP) Subjective: Patient with swollen legs and hx of shoulder and knee surgeries. Objective: P/E: General: no apparent distress MSK: limited shoulder mobility, unable to reach above head. Knees with edema, Left> right Neuro: 2-12 intact Skin: healed surgical scars bilateral knees. 09/26/19 14:25 09/26/19 14:28 CBC, BMP 09/20/19 09:00 Assessment: bilateral pain, knees edema, bilateral knees 09/26/19 14:27 Plan: oRDER CIRILO-YEPEZ AND COMPRESSION STOCKINGS, MUSCLE RELAXANT ORDERED.
[2019-09-26] MEDS ORDERED: NICOTINE POLACRILEX 4 MG GUM BUC PRN (14:32)
[2019-09-26] MEDS: CYCLOBENZAPRINE HCL 10 MG TABLET (FP) PO SCH ×2 (15:43→21:07)
[2019-09-26 16:29] LABS: PH,URINE >= 9.0 (5.0-8.0); URINE APPEARANCE CLOUDY; URINE BILIRUBIN NEGATIVE (NEGATIVE); URINE COLOR YELLOW; URINE GLUCOSE (UA) NEGATIVE (NEGATIVE); URINE KETONE NEGATIVE (NEGATIVE); URINE LEUK ESTERASE NEGATIVE (NEGATIVE); URINE NITRITE NEGATIVE (NEGATIVE); URINE PROTEIN NEGATIVE (NEGATIVE); URINE UROBILINOGEN 0.2 mg/dL (0.2-1.0)
[2019-09-26] MEDS ORDERED: PT OWN MED DRAWER 7, Y5N ONE (19:27)
[2019-09-26] MEDS: THIAMINE HCL 100 MG TABLET (FP) PO SCH (21:07)
[2019-09-26] MEDS: SUVOREXANT 10 MG TABLET PO PRN (21:09)
[2019-09-26] MEDS: IBUPROFEN 600 MG TABLET (FP) PO PRN (21:10)
[2019-09-26] MEDS: METHYL SALICYLATE/MENTHOL OINT 30 GM TUBE TP SCH (21:31)
[2019-09-26] MEDS: LIDOCAINE PATCH REMOVAL MC SCH (21:32)
[2019-09-27] MEDS: CYCLOBENZAPRINE HCL 10 MG TABLET (FP) PO SCH ×3 (06:47→21:55)
[2019-09-27] MEDS: LIDOCAINE 5% TOPICAL PATCH TP SCH (10:09)
[2019-09-27] MEDS: METHYL SALICYLATE/MENTHOL OINT 30 GM TUBE TP SCH ×2 (10:10→21:57)
[2019-09-27] MEDS: CALCIUM 250MG/VIT-D 125 UNITS 1 COMBO TABLET PO SCH ×2 (10:10→21:54)
[2019-09-27] MEDS: PRENATAL VITAMINS W/ FOLIC ACID TABLET (FP) PO SCH (10:10)
[2019-09-27] MEDS: BUPRENORPHINE/NALOXONE 8 MG/2 MG FILM PACKET SL SCH (10:10)
[2019-09-27] MEDS: TOLNAFTATE 1% CREAM 15 GM TUBE TP SCH ×2 (10:11→21:54)
[2019-09-27] MEDS: IBUPROFEN 600 MG TABLET (FP) PO PRN ×2 (10:12→21:56)
[2019-09-27] MEDS: THIAMINE HCL 100 MG TABLET (FP) PO SCH (21:53)
[2019-09-27] MEDS: LIDOCAINE PATCH REMOVAL MC SCH (21:54)
[2019-09-27] MEDS: SUVOREXANT 10 MG TABLET PO PRN (21:56)
[2019-09-27] MEDS ORDERED: MELATONIN 5 MG TABLETS PO PRN (22:00)
[2019-09-28] MEDS: IBUPROFEN 600 MG TABLET (FP) PO PRN (03:06)
[2019-09-28] MEDS: CYCLOBENZAPRINE HCL 10 MG TABLET (FP) PO SCH ×3 (06:24→21:50)
[2019-09-28] MEDS ORDERED: PT OWN MED DRAWER 7, Y5N ONE ×2 (08:44→14:03)
[2019-09-28] MEDS: BUPRENORPHINE/NALOXONE 8 MG/2 MG FILM PACKET SL SCH (09:52)
[2019-09-28] MEDS: LIDOCAINE 5% TOPICAL PATCH TP SCH (09:52)
[2019-09-28] MEDS: TOLNAFTATE 1% CREAM 15 GM TUBE TP SCH ×2 (09:53→21:51)
[2019-09-28] MEDS: CALCIUM 250MG/VIT-D 125 UNITS 1 COMBO TABLET PO SCH ×2 (09:53→21:52)
[2019-09-28] MEDS: PRENATAL VITAMINS W/ FOLIC ACID TABLET (FP) PO SCH (09:53)
[2019-09-28] MEDS: METHYL SALICYLATE/MENTHOL OINT 30 GM TUBE TP SCH ×2 (09:55→21:51)
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
--- NOTE | 2019-09-28 14:10 | PN ---
[facility] Progress Note Note: Psychiatric nurse practitoner note: Belsomra 10mg renewed X3 days. Verbal consent given.
[2019-09-28] MEDS: THIAMINE HCL 100 MG TABLET (FP) PO SCH (21:50)
[2019-09-28] MEDS: LIDOCAINE PATCH REMOVAL MC SCH (21:52)
[2019-09-28] MEDS ORDERED: SUVOREXANT 10 MG TABLET PO PRN (22:00)
[2019-09-29] MEDS: CYCLOBENZAPRINE HCL 10 MG TABLET (FP) PO SCH (06:45)
[2019-09-29 07:02] VITALS: BP 116/76; PULSE 70; TEMP 97.9
== END 2019-09-29 08:46 | disposition home or self-care (01) | DRG 772 ==
LOC: YASAS 12:47 → Y3E 12:48
PROVIDERS: ADMIT Neuromusculoskeletal Medicine & OMM; ATTEND Neuromusculoskeletal Medicine & OMM
PROC: HZ42ZZZ Group Counseling for Substance Abuse Treatment, Cognitive-Behavioral (ICD-10-PCS; principal; 2019-09-19)
DX: F10.20 Alcohol dependence, uncomplicated (principal); F11.20 Opioid dependence, uncomplicated; F14.20 Cocaine dependence, uncomplicated; F17.213 Nicotine dependence, cigarettes, with withdrawal; F39 Unspecified mood [affective] disorder; F19.24 Other psychoactive substance dependence with psychoactive substance-induced mood disorder; N89.8 Other specified noninflammatory disorders of vagina; G47.00 Insomnia, unspecified; M25.462 Effusion, left knee; M25.461 Effusion, right knee; M19.012 Primary osteoarthritis, left shoulder; M19.011 Primary osteoarthritis, right shoulder; L84 Corns and callosities; Z62.810 Personal history of physical and sexual abuse in childhood; Z22.0 Carrier of typhoid; Z96.653 Presence of artificial knee joint, bilateral
CPT/HCPCS: 36415; 73130-TC-RT-FY; 81003; 84132; 84450; 87086; 87491; 87591

== ENCOUNTER 2019-10-18 08:16 | Inpatient (IN) | payer OTHER ==
[2019-10-18 09:13] VITALS: BMI 25.9
--- NOTE | 2019-10-18 09:49 | HP ---
COWS - Scale Resting Pulse: 0= MO 80 or Below Sweatin= Chills/Flushing Restless Observation: 1= Difficult to Sit Still Pupil Size: 1= Pupils >than Normal Bone or Joint Aches: 2= Severe Diffuse Aches Runny Nose/ Eye Tearin= Runny Nose/Eyes GI Upset > 30mins: 5=Frequent Vomit/Diarrhea Tremor Observation: 1= Tremor [place], Not Seen Yawning Observation: 1= 1-2x During Session Anxiety or Irritability: 1=Feels Anxious/Irritable Goose Flesh Skin: 0=Smooth Skin COWS Score: 15 CIWA Score Nausea/Vomitin Muscle Tremors: 1-None Visible, but [place] Anxiety: 2 Agitation: 2 Paroxysmal Sweats: 1-Minimal Palms Moist Orientation: 2-Disoriented Date<2 days Tacttile Disturbances: 1-Very Mild Itch/Numbness Auditory Disturbances: 0-None Visual Disturbances: 0-None Headache: 1-Very Mild CIWA-Ar Total Score: 13 - Admission Criteria OASAS Guidelines: Admission for Medically Managed Detox: Requires at least one of the followin. CIWA greater than 12 2. Seizures within the past 24 hours 3. Delirium tremens within the past 24 hours 4. Hallucinations within the past 24 hours 5. Acute intervention needed for co occurring medical disorder 6. Acute intervention needed for co occurring psychiatric disorder 7. Severe withdrawal that cannot be handled at a lower level of care (continued vomiting, continued diarrhea, abnormal vital signs) requiring intravenous medication and/or fluids 8. Admitting History and Physical - Admission Chief Complaint: " I dug myself into a deep hole and I want to get out" History of Present Illness: 39 year old female with opioid dependence with withdrawal, alcohol dependence with withdrawal, and cocaine/crack use disorder. She is using 7-8 bags of heroin, 3 days ago. However, she bought subox[address] and has been using that last 3 days. She used to be on a suboxone program in the [place] and was abstinent for 3 months while on that program. However, she stopped using the suboxone and relapsed and starting using heroin. She is also drinking 1 pint of vodka daily but usually when she is using crack. She is smoking crack for last 3 months, $200 per day. She has lost a lot of weight while on crack. She is smoking ciggarettes 4 per day, smoking since age 9 years old. PMH: B/L knee replacements now with arthritis. Arthritis in a lot of her joints. Psurg: B/L knee replacements. Cholecystectomy at age [age] years old. Denies any legal issues pending. Patient is domiciled with kids and significant other in the [place]. History Source: Patient Limitations to Obtaining History: No Limitations - Past Medical History ...LMP: 09/16/19 Rheumatology: Yes: Rheumatoid Arthritis - Past Surgical History Past Surgical History: Yes: None - Advance Directives Advance Directives: No: Living Will, Health Care Proxy, DNR - Smoking History Smoking history: Current every day smoker Have you smoked in the past 12 months: Yes Aproximately how many cigarettes per day: 10 - Alcohol/Substance Use Hx Alcohol Use: Yes (1 pint of vodka daily with binging) History of Substance Use: reports: Cocaine, Heroin - Social History Usual Living Arrangement: Yes: Alone Do you think of yourself as: Straight/Heterosexual ADL: Independent Occupation: unemployed health aide History of Recent Travel: No Admission [facility] Allergies/Adverse Reactions: Allergies Allergy/AdvReac Type Severity Reaction Status Date / Time Fish Containing Products Allergy Intermediate Rash Verified 10/18/19 09:09 No Known Drug Allergies Allergy Verified 09/17/19 11:04 Exam Limitations: No Limitations - Ebola screening Have you traveled outside of the country in the last 21 days: No Have you had contact with anyone from an Ebola affected area: No Have you been sick,other than usual withdrawal symptoms: No Do you have a fever: No - Review of Systems Constitutional: Chills, Diaphoresis EENT: reports: No Symptoms Reported Respiratory: reports: No Symptoms reported Cardiac: reports: No Symptoms Reported GI: reports: No Symptoms Reported : reports: No Symptoms Reported Musculoskeletal: reports: Other (knee pains) Integumentary: reports: No Symptoms Reported Neuro: reports: No Symptoms reported Endocrine: reports: No Symptoms Reported Hematology: reports: No Symptoms Reported Psychiatric: reports: Judgement Intact, Mood/Affect Appropiate, Orientated x3, Agitated, Depressed Other Systems: Reviewed and Negative Patient History - Patient Medical History Hx Anemia: Yes (Not on medication) Hx Asthma: Yes Hx Chronic Obstructive Pulmonary Disease (COPD): No Hx Cancer: No Hx Cardiac Disorders: No Hx Congestive Heart Failure: No Hx Hypertension: No Hx Hypercholesterolemia: No Hx Pacemaker: No HX Cerebrovascular Accident: No Hx Seizures: No Hx Dementia: No Hx Diabetes: No Hx Gastrointestinal Disorders: No Hx Liver Disease: No Hx Genitourinary Disorders: No Hx Sexually Transmitted Disorders: No Hx Renal Disease (ESRD): No Hx Thyroid Disease: No Hx Human Immunodeficiency Virus (HIV): No Hx Hepatitis C: Yes (NOT TREATMENT) Hx Depression: Yes Hx Suicide Attempt: No Hx Bipolar Disorder: No Hx Schizophrenia: No - Patient Surgical History Past Surgical History: Yes Hx Neurologic Surgery: No Hx Cataract Extraction: No Hx Cardiac Surgery: No Hx Lung Surgery: No Hx Breast Surgery: No Hx Breast Biopsy: No Hx Abdominal Surgery: No Hx Appendectomy: No Hx Cholecystectomy: Yes (AT 26 Y/O) Hx Genitourinary Surgery: No Hx Section: Yes (2003) Hx Orthopedic Surgery: No Anesthesia Reaction: No - PPD History Date: 03/14/19 Results: 0mm - Reproductive History Last Menstrual Period: 09/16/19 - Smoking Cessation Smoking history: Current every day smoker Have you smoked in the past 12 months: Yes Aproximately how many cigarettes per day: 10 Hx Chewing Tobacco Use: No - Substances abused Heroin Substance route: Inhalation Frequency: 3-6 times per week Amount used: 7 bags Age of first use: 10 Date of last use: 10/15/19 Cocaine Substance route: Inhalation Frequency: Daily Amount used: 300$ Age of first use: 9 Date of last use: 10/17/19 Admission Physical Exam [facility] - Vital Signs Vital Signs: Vital Signs - 24 hr 10/18/19 10/18/19 09:11 09:28 Temperature 97.6 F 97.6 F Pulse Rate 75 75 Respiratory 16 16 Rate Blood Pressure 109/74 109/74 - Physical General Appearance: Yes: Moderate Distress, Tremorous, Irritable, Sweating HEENTM: Yes: EOMI, Hearing grossly Normal, Normal ENT Inspection, Normocephalic , Normal Voice, ASHLY, Pharynx Normal, Tm's normal Respiratory: Yes: Chest Non-Tender, Lungs Clear, Normal Breath Sounds, No Respiratory Distress, No Accessory Muscle Use Neck: Yes: No masses,lesions,Nodules, Supple, Trachea in good position Breast: Yes: Within Normal Limits Cardiology: Yes: Regular Rhythm, Regular Rate, S1, S2 Abdominal: Yes: Normal Bowel Sounds, Non Tender, Flat, Soft Back: Yes: Normal Inspection Musculoskeletal: Yes: full range of Motion, Gait Steady, Pelvis Stable Extremities: Yes: Normal Capillary Refill, Normal Inspection, Normal Range of Motion, Non-Tender Neurological: Yes: it systems analyst II-XII NML intact, Fully Oriented, Alert, Motor Strength 5/5, Normal Mood/Affect, Normal Response Integumentary: Yes: Normal Color, Warm Lymphatic: Yes: Within Normal Limits - Diagnostic (1) Alcohol dependence with withdrawal Current Visit: No Status: Acute Qualifiers: Complication of substance-induced condition: with unspecified complication Qualified Code(s): F10.239 - Alcohol dependence with withdrawal, unspecified (2) Arthritis of knee Current Visit: Yes Status: Acute (3) Depressive disorder Current Visit: Yes Status: Acute (4) Insomnia Current Visit: Yes Status: Acute (5) MDD (major depressive disorder) Current Visit: Yes Status: Acute (6) Patient left before evaluation by physician Current Visit: Yes Status: Acute Cleared for Admission [facility] - Detox or Rehab [facility] Level of Care: Medically Managed Detox Regimen/Protocol: Methadone/Librium Claeared for Rehab Admission: No Breathalyzer - Breathalyzer Breathalyzer: 0 Urine Drug Screen - Test Device Lot number: [id number] Expiration date: 05/17/21 - Control Is test valid?: Yes - Results Drug screen NEGATIVE: No Urine drug screen results: MIKKI-Cocaine, BUP-Suboxone Inpatient Rehab Admission - Rehab Decision to Admit Inpatient rehab admission?: No
[2019-10-18] MEDS ORDERED: MAG HYDROX/AL HYDROX/SIMETH 30 ML UNIT-DOSE CUP PO PRN (10:06)
[2019-10-18] MEDS ORDERED: chlordiazePOXIDE HCL 25 MG CAPSULE PO PRN ×2 (10:06→17:47)
[2019-10-18] MEDS ORDERED: MENTHOL/PHENOL 1 EACH UD MM PRN (10:06)
[2019-10-18] MEDS ORDERED: ACETAMINOPHEN 325 MG TABLET (FP) PO PRN ×2 (10:06)
[2019-10-18] MEDS ORDERED: hydrOXYzine PAMOATE 25 MG CAPSULE (FP) PO PRN (10:06)
[2019-10-18] MEDS ORDERED: MAGNESIUM CITRATE 300 ML BOTTLE PO PRN (10:06)
[2019-10-18] MEDS ORDERED: MAGNESIUM HYDROX 2400MG/30ML ORAL SUSPENSION 30 ML CUP PO PRN (10:06)
[2019-10-18] MEDS ORDERED: BISMUTH SUBSALICYLATE 524 MG/30 ML UD PO PRN (10:06)
[2019-10-18] MEDS ORDERED: ALBUTEROL SO4 8 GM HFA INHALER IH PRN (10:09)
[2019-10-18] MEDS: SERTRALINE HCL 50 MG TABLET (FP) PO SCH (11:08)
[2019-10-18] MEDS: chlordiazePOXIDE HCL 25 MG CAPSULE PO SCH ×2 (11:08→17:52)
[2019-10-18] MEDS: GABAPENTIN 300 MG CAPSULE (FP) PO SCH ×2 (11:08→17:55)
[2019-10-18] MEDS: BUPRENORPHINE/NALOXONE 8 MG/2 MG FILM PACKET SL SCH (11:08)
[2019-10-18] MEDS: NICOTINE 14 MG/24 HOURS TOPICAL PATCH TD SCH (11:08)
--- NOTE | 2019-10-18 17:21 | PN ---
[facility] Progress Note Note: Patient admitted earlier today w/ alcohol and opiate use disorder. Vital Signs - 24 hr 10/18/19 10/18/19 10/18/19 09:11 09:28 10:40 Temperature 97.6 F 97.6 F 96.8 F L Pulse Rate 75 75 64 Respiratory 16 16 18 Rate Blood Pressure 109/74 109/74 112/68 10/18/19 10/18/19 13:27 16:52 Temperature 97.0 F L 97.6 F Pulse Rate 76 59 L Respiratory 18 18 Rate Blood Pressure 111/71 98/58 L Based on patient's binge alcohol use and low blood pressure will adjust Librium detox from severe to moderate. .
[2019-10-18] MEDS ORDERED: chlordiazePOXIDE HCL 25 MG CAPSULE PO SCH (17:47)
[2019-10-18] MEDS: THIAMINE HCL 100 MG TABLET (FP) PO SCH (22:08)
[2019-10-18] MEDS: traZODone HCL 50 MG TABLET (FP) PO SCH (22:08)
[2019-10-18] MEDS: chlordiazePOXIDE HCL 10 MG CAPSULE PO SCH (22:08)
[2019-10-19] MEDS: chlordiazePOXIDE HCL 10 MG CAPSULE PO SCH ×4 (07:23→22:11)
[2019-10-19] MEDS: GABAPENTIN 300 MG CAPSULE (FP) PO SCH ×3 (07:23→17:32)
--- NOTE | 2019-10-19 09:35 | PN ---
S CIWA - CIWA Score Nausea/Vomitin-Mild Nausea/No Vomiting Muscle Tremors: 3 Anxiety: 4-Mod. Anxious/Guarded Agitation: 2 Paroxysmal Sweats: 2 Orientation: 1-Uncertain about Date (date of week) Tacttile Disturbances: 0-None Auditory Disturbances: 0-None Visual Disturbances: 0-None Headache: 1-Very Mild CIWA-Ar Total Score: 14 [facility] Progress Note (SOAP) Subjective: 39 years old female admitted on 10/18/19 for alcohol withdrawal sx management treating with librium detox regimen on suboxone 8-2mg po daily feeling ok today ate breakfast resting on bed encourage to attend detox unit groups and meetings Objective: 10/19/19 09:34 Vital Signs Temperature 96.3 F L 10/19/19 09:08 Pulse Rate 55 L 10/19/19 09:08 Respiratory Rate 16 10/19/19 09:08 Blood Pressure 92/63 10/19/19 09:08 O2 Sat by Pulse Oximetry (%) 10/19/19 09:34 lab pending Assessment: 10/19/19 09:34 alcohol withdrawal Plan: librium regimen
[2019-10-19 10:13] LABS: HEMATOCRIT 32.5 % (32.4-45.2); HEMOGLOBIN 10.7 GM/dL (10.7-15.3); MCH 28.9 pg (25.7-33.7); MCHC 32.8 g/dl (32.0-36.0); MEAN PLT VOLUME 7.9 fl (7.5-11.1); PLATELET COUNT 285 K/MM3 (134-434); RBC 3.69 M/mm3 (3.60-5.2); RDW 14.6 % (11.6-15.6); WHITE BLOOD COUNT 5.1 K/mm3 (4.0-10.0)
[2019-10-19 10:18] LABS: ALBUMIN 2.7 g/dl (3.4-5.0); BILIRUBIN,TOTAL 0.1 mg/dL (0.2-1); BLOOD UREA NITROGEN 10.9 mg/dL (7-18); CALCIUM 8.3 mg/dL (8.5-10.1); CREATININE 0.7 mg/dL (0.55-1.3); POTASSIUM 3.1 mmol/L (3.5-5.1); TOT PROT 6.1 g/dl (6.4-8.2)
[2019-10-19] MEDS: NICOTINE 14 MG/24 HOURS TOPICAL PATCH TD SCH (11:37)
[2019-10-19] MEDS: PRENATAL VITAMINS W/ FOLIC ACID TABLET (FP) PO SCH (11:37)
[2019-10-19] MEDS: SERTRALINE HCL 50 MG TABLET (FP) PO SCH (13:14)
[2019-10-19] MEDS: BUPRENORPHINE/NALOXONE 8 MG/2 MG FILM PACKET SL SCH (13:15)
[2019-10-19] MEDS ORDERED: POTASSIUM CHLORIDE ORAL LIQUID 20 MEQ/15 ML PO ONE ×2 (15:59→22:00)
[2019-10-19] MEDS: THIAMINE HCL 100 MG TABLET (FP) PO SCH (22:11)
[2019-10-19] MEDS: traZODone HCL 50 MG TABLET (FP) PO SCH (22:11)
[2019-10-19] MEDS: MELATONIN 5 MG TABLETS PO PRN (22:12)
[2019-10-20] MEDS: GABAPENTIN 300 MG CAPSULE (FP) PO SCH ×4 (03:06→22:20)
[2019-10-20] MEDS ORDERED: chlordiazePOXIDE HCL 25 MG CAPSULE PO SCH ×2 (05:00)
[2019-10-20] MEDS ORDERED: chlordiazePOXIDE 5 MG CAPSULE PO SCH (06:26)
[2019-10-20] MEDS: chlordiazePOXIDE 5 MG CAPSULE PO SCH ×4 (06:36→22:20)
[2019-10-20] MEDS: chlordiazePOXIDE HCL 10 MG CAPSULE PO SCH (06:59)
[2019-10-20] MEDS: BUPRENORPHINE/NALOXONE 8 MG/2 MG FILM PACKET SL SCH (10:10)
[2019-10-20] MEDS: NICOTINE 14 MG/24 HOURS TOPICAL PATCH TD SCH (10:10)
[2019-10-20] MEDS: PRENATAL VITAMINS W/ FOLIC ACID TABLET (FP) PO SCH (10:10)
--- NOTE | 2019-10-20 12:03 | PN ---
S CIWA - CIWA Score Nausea/Vomitin-Mild Nausea/No Vomiting Muscle Tremors: 2 Anxiety: 2 Agitation: 1-Slight > Activity Paroxysmal Sweats: 2 Orientation: 0-Oriented Tacttile Disturbances: 1-Very Mild Itch/Numbness Auditory Disturbances: 0-None Visual Disturbances: 0-None Headache: 0-None Present CIWA-Ar Total Score: 9 [facility] Progress Note (SOAP) Subjective: interrupted sleep, sweats, shakes, Objective: 10/20/19 12:01 Vital Signs Temperature 98.0 F 10/20/19 09:11 Pulse Rate 81 10/20/19 09:11 Respiratory Rate 18 10/20/19 09:11 Blood Pressure 102/67 10/20/19 09:11 O2 Sat by Pulse Oximetry (%) Laboratory Tests 10/18/19 10/19/19 10/19/19 09:30 08:00 08:00 WBC 5.1 RBC 3.69 Hgb 10.7 Hct 32.5 MCV 88.0 MCH 28.9 MCHC 32.8 RDW 14.6 Plt Count 285 MPV 7.9 Sodium 143 Potassium 3.1 L Chloride 102 Carbon Dioxide 37 H Anion Gap 4 L BUN 10.9 Creatinine 0.7 Est GFR (CKD-EPI)AfAm 124.73 Est GFR (CKD-EPI)NonAf 107.62 Random Glucose 95 Calcium 8.3 L Total Bilirubin 0.1 L AST 68 H ALT 26 Alkaline Phosphatase 83 Total Protein 6.1 L Albumin 2.7 L POC Urine HCG, Qual Negative RPR Titer HIV 1&2 Antibody Screen HIV P24 Antigen 10/19/19 10/19/19 10/20/19 08:00 08:00 07:40 WBC RBC Hgb Hct MCV MCH MCHC RDW Plt Count MPV Sodium Potassium 3.6 Chloride Carbon Dioxide Anion Gap BUN Creatinine Est GFR (CKD-EPI)AfAm Est GFR (CKD-EPI)NonAf Random Glucose Calcium Total Bilirubin AST ALT Alkaline Phosphatase Total Protein Albumin POC Urine HCG, Qual RPR Titer Nonreactive HIV 1&2 Antibody Screen Negative HIV P24 Antigen Negative pt aox3 in nad ambulating Assessment: 10/20/19 12:02 withdrawal sx's Plan: cont. detox increase fluids
[2019-10-20] MEDS: THIAMINE HCL 100 MG TABLET (FP) PO SCH (22:19)
[2019-10-20] MEDS: IBUPROFEN 400 MG TABLET (FP) PO PRN (22:20)
[2019-10-20] MEDS: MELATONIN 5 MG TABLETS PO PRN (22:22)
[2019-10-20] MEDS: METHOCARBAMOL 500 MG TABLET PO PRN (22:22)
[2019-10-21] MEDS ORDERED: chlordiazePOXIDE HCL 10 MG CAPSULE PO PRN ×2
[2019-10-21] MEDS ORDERED: chlordiazePOXIDE 5 MG CAPSULE PO PRN (04:48)
[2019-10-21] MEDS ORDERED: chlordiazePOXIDE HCL 10 MG CAPSULE PO SCH ×2 (05:00)
[2019-10-21] MEDS: chlordiazePOXIDE 5 MG CAPSULE PO SCH ×4 (06:19→22:27)
[2019-10-21] MEDS: GABAPENTIN 300 MG CAPSULE (FP) PO SCH ×3 (06:19→22:28)
[2019-10-21] MEDS: IBUPROFEN 400 MG TABLET (FP) PO PRN (07:31)
[2019-10-21] MEDS: METHOCARBAMOL 500 MG TABLET PO PRN ×2 (07:31→22:29)
--- NOTE | 2019-10-21 10:31 | PN ---
S CIWA - CIWA Score Nausea/Vomitin-No Nausea/No Vomiting Muscle Tremors: None Anxiety: 3 Agitation: 1-Slight > Activity Paroxysmal Sweats: 3 Orientation: 0-Oriented Tacttile Disturbances: 0-None Auditory Disturbances: 0-None Visual Disturbances: 0-None Headache: 1-Very Mild CIWA-Ar Total Score: 8 [facility] Progress Note (SOAP) Subjective: c/o anxiety, headache, and sweats. Objective: 10/21/19 10:28 Vital Signs 10/21/19 10/21/19 10/21/19 03:30 06:05 09:08 Temperature 98.4 F 99.1 F Pulse Rate 72 76 Respiratory 16 16 16 Rate Blood Pressure 90/60 93/52 L Lab Results WBC 5.1 K/mm3 (4.0-10.0) 10/19/19 08:00 RBC 3.69 M/mm3 (3.60-5.2) 10/19/19 08:00 Hgb 10.7 GM/dL (10.7-15.3) 10/19/19 08:00 Hct 32.5 % (32.4-45.2) 10/19/19 08:00 MCV 88.0 fl (80-96) 10/19/19 08:00 MCHC 32.8 g/dl (32.0-36.0) 10/19/19 08:00 RDW 14.6 % (11.6-15.6) 10/19/19 08:00 Plt Count 285 K/MM3 (134-434) 10/19/19 08:00 Sodium 143 mmol/L (136-145) 10/19/19 08:00 Potassium 3.6 mmol/L (3.5-5.1) 10/20/19 07:40 Chloride 102 mmol/L (98-107) 10/19/19 08:00 Carbon Dioxide 37 mmol/L (21-32) H 10/19/19 08:00 Anion Gap 4 MMOL/L (8-16) L 10/19/19 08:00 BUN 10.9 mg/dL (7-18) 10/19/19 08:00 Creatinine 0.7 mg/dL (0.55-1.3) 10/19/19 08:00 Random Glucose 95 mg/dL (74-106) 10/19/19 08:00 Calcium 8.3 mg/dL (8.5-10.1) L 10/19/19 08:00 Labs noted. Assessment: 10/21/19 10:29 AOX3, in no acute respiratory distress. Full ROM, ambulating in the unit. Withdrawal symptoms. Plan: continue detox.
[2019-10-21] MEDS: PRENATAL VITAMINS W/ FOLIC ACID TABLET (FP) PO SCH (10:33)
[2019-10-21] MEDS: BUPRENORPHINE/NALOXONE 8 MG/2 MG FILM PACKET SL SCH (10:34)
[2019-10-21] MEDS: NICOTINE 14 MG/24 HOURS TOPICAL PATCH TD SCH (11:14)
[2019-10-21] MEDS: THIAMINE HCL 100 MG TABLET (FP) PO SCH (22:28)
[2019-10-22] MEDS: MELATONIN 5 MG TABLETS PO PRN (00:48)
[2019-10-22] MEDS ORDERED: chlordiazePOXIDE HCL 10 MG CAPSULE PO SCH (05:00)
[2019-10-22] MEDS: GABAPENTIN 300 MG CAPSULE (FP) PO SCH ×3 (05:43→21:22)
[2019-10-22] MEDS: chlordiazePOXIDE 5 MG CAPSULE PO SCH ×2 (05:43→17:34)
[2019-10-22] MEDS: METHOCARBAMOL 500 MG TABLET PO PRN ×2 (05:44→21:21)
--- NOTE | 2019-10-22 09:35 | PN ---
S CIWA - CIWA Score Nausea/Vomitin-No Nausea/No Vomiting Muscle Tremors: 1-None Visible, but [place] Anxiety: 2 Agitation: 1-Slight > Activity Paroxysmal Sweats: 1-Minimal Palms Moist Orientation: 0-Oriented Tacttile Disturbances: 0-None Auditory Disturbances: 0-None Visual Disturbances: 0-None Headache: 0-None Present CIWA-Ar Total Score: 5 [facility] Progress Note (SOAP) Subjective: 39 years old female admitted on 10/18/19 for alcohol withdrawal sx management treating with librium detox regimen in the suboxone maintenance program received suboxone doing ok today ate breakfast in day room encourage oral fluid Objective: 10/22/19 09:36 Vital Signs Temperature 97.8 F 10/22/19 09:11 Pulse Rate 66 10/22/19 09:11 Respiratory Rate 16 10/22/19 09:11 Blood Pressure 99/73 10/22/19 09:11 O2 Sat by Pulse Oximetry (%) Laboratory Last Values WBC 5.1 K/mm3 (4.0-10.0) 10/19/19 08:00 RBC 3.69 M/mm3 (3.60-5.2) 10/19/19 08:00 Hgb 10.7 GM/dL (10.7-15.3) 10/19/19 08:00 Hct 32.5 % (32.4-45.2) 10/19/19 08:00 MCV 88.0 fl (80-96) 10/19/19 08:00 MCH 28.9 pg (25.7-33.7) 10/19/19 08:00 MCHC 32.8 g/dl (32.0-36.0) 10/19/19 08:00 RDW 14.6 % (11.6-15.6) 10/19/19 08:00 Plt Count 285 K/MM3 (134-434) 10/19/19 08:00 MPV 7.9 fl (7.5-11.1) 10/19/19 08:00 Sodium 143 mmol/L (136-145) 10/19/19 08:00 Potassium 3.6 mmol/L (3.5-5.1) 10/20/19 07:40 Chloride 102 mmol/L (98-107) 10/19/19 08:00 Carbon Dioxide 37 mmol/L (21-32) H 10/19/19 08:00 Anion Gap 4 MMOL/L (8-16) L 10/19/19 08:00 BUN 10.9 mg/dL (7-18) 10/19/19 08:00 Creatinine 0.7 mg/dL (0.55-1.3) 10/19/19 08:00 Est GFR (CKD-EPI)AfAm 124.73 10/19/19 08:00 Est GFR (CKD-EPI)NonAf 107.62 10/19/19 08:00 Random Glucose 95 mg/dL (74-106) 10/19/19 08:00 Calcium 8.3 mg/dL (8.5-10.1) L 10/19/19 08:00 Total Bilirubin 0.1 mg/dL (0.2-1) L 10/19/19 08:00 AST 68 U/L (15-37) H 10/19/19 08:00 ALT 26 U/L (13-61) 10/19/19 08:00 Alkaline Phosphatase 83 U/L (45-117) 10/19/19 08:00 Total Protein 6.1 g/dl (6.4-8.2) L 10/19/19 08:00 Albumin 2.7 g/dl (3.4-5.0) L 10/19/19 08:00 POC Urine HCG, Qual Negative 10/18/19 09:30 RPR Titer Nonreactive (NONREACTIVE) 10/19/19 08:00 HIV 1&2 Antibody Screen Negative 10/19/19 08:00 HIV P24 Antigen Negative 10/19/19 08:00 lab noted Assessment: 10/22/19 09:37 alcohol withdrawal Plan: librium regimen
[2019-10-22] MEDS: PRENATAL VITAMINS W/ FOLIC ACID TABLET (FP) PO SCH (10:27)
[2019-10-22] MEDS: BUPRENORPHINE/NALOXONE 8 MG/2 MG FILM PACKET SL SCH (10:27)
[2019-10-22] MEDS: NICOTINE 14 MG/24 HOURS TOPICAL PATCH TD SCH (10:28)
[2019-10-22] MEDS ORDERED: COLLOIDAL OATMEAL 1 BAR EACH TP PRN (13:36)
[2019-10-22] MEDS: CLOTRIMAZOLE 1% CREAM 15 GM TUBE TP SCH ×2 (14:14→21:23)
[2019-10-22] MEDS: THIAMINE HCL 100 MG TABLET (FP) PO SCH (21:22)
[2019-10-23] MEDS: IBUPROFEN 400 MG TABLET (FP) PO PRN (00:56)
[2019-10-23] MEDS ORDERED: chlordiazePOXIDE 5 MG CAPSULE PO ONE (05:00)
[2019-10-23] MEDS ORDERED: chlordiazePOXIDE HCL 10 MG CAPSULE PO ONE (05:00)
[2019-10-23] MEDS: GABAPENTIN 300 MG CAPSULE (FP) PO SCH (06:06)
[2019-10-23 09:04] VITALS: BP 97/56; PULSE 83; TEMP 96
[2019-10-23] MEDS: PRENATAL VITAMINS W/ FOLIC ACID TABLET (FP) PO SCH (10:12)
[2019-10-23] MEDS: CLOTRIMAZOLE 1% CREAM 15 GM TUBE TP SCH (10:13)
[2019-10-23] MEDS: NICOTINE 14 MG/24 HOURS TOPICAL PATCH TD SCH (10:13)
[2019-10-23] MEDS: BUPRENORPHINE/NALOXONE 8 MG/2 MG FILM PACKET SL SCH (10:13)
--- NOTE | 2019-10-23 11:14 | DS ---
[facility] Detox Discharge Summary Admission Date: 10/18/19 Discharge Date: 10/23/19 - History Present History: Alcohol Dependence Additional Comments: 39 years old female admitted on 10/18/19 for alcohol withdrawal sx management treated with librium detox regimen completed detox regimen patient tolerated well alert oriented x 3 respiratory clear lungs bilaterally on auscultation extremities full range of motion skin warm and dry - Physical Exam Results Vital Signs: Vital Signs Temperature 96 F L 10/23/19 09:04 Pulse Rate 83 10/23/19 09:04 Respiratory Rate 20 10/23/19 09:04 Blood Pressure 97/56 L 10/23/19 09:04 O2 Sat by Pulse Oximetry (%) Pertinent Admission Physical Exam Findings: alcohol withdrawal Laboratory Last Values WBC 5.1 K/mm3 (4.0-10.0) 10/19/19 08:00 RBC 3.69 M/mm3 (3.60-5.2) 10/19/19 08:00 Hgb 10.7 GM/dL (10.7-15.3) 10/19/19 08:00 Hct 32.5 % (32.4-45.2) 10/19/19 08:00 MCV 88.0 fl (80-96) 10/19/19 08:00 MCH 28.9 pg (25.7-33.7) 10/19/19 08:00 MCHC 32.8 g/dl (32.0-36.0) 10/19/19 08:00 RDW 14.6 % (11.6-15.6) 10/19/19 08:00 Plt Count 285 K/MM3 (134-434) 10/19/19 08:00 MPV 7.9 fl (7.5-11.1) 10/19/19 08:00 Sodium 143 mmol/L (136-145) 10/19/19 08:00 Potassium 3.6 mmol/L (3.5-5.1) 10/20/19 07:40 Chloride 102 mmol/L (98-107) 10/19/19 08:00 Carbon Dioxide 37 mmol/L (21-32) H 10/19/19 08:00 Anion Gap 4 MMOL/L (8-16) L 10/19/19 08:00 BUN 10.9 mg/dL (7-18) 10/19/19 08:00 Creatinine 0.7 mg/dL (0.55-1.3) 10/19/19 08:00 Est GFR (CKD-EPI)AfAm 124.73 10/19/19 08:00 Est GFR (CKD-EPI)NonAf 107.62 10/19/19 08:00 Random Glucose 95 mg/dL (74-106) 10/19/19 08:00 Calcium 8.3 mg/dL (8.5-10.1) L 10/19/19 08:00 Total Bilirubin 0.1 mg/dL (0.2-1) L 10/19/19 08:00 AST 68 U/L (15-37) H 10/19/19 08:00 ALT 26 U/L (13-61) 10/19/19 08:00 Alkaline Phosphatase 83 U/L (45-117) 10/19/19 08:00 Total Protein 6.1 g/dl (6.4-8.2) L 10/19/19 08:00 Albumin 2.7 g/dl (3.4-5.0) L 10/19/19 08:00 POC Urine HCG, Qual Negative 10/18/19 09:30 RPR Titer Nonreactive (NONREACTIVE) 10/19/19 08:00 HIV 1&2 Antibody Screen Negative 10/19/19 08:00 HIV P24 Antigen Negative 10/19/19 08:00 lab noted - Treatment Hospital Course: Detox Protocol Followed, Detoxed Safely, Responded well, Discharged Condition Good, Rehab Referral Accepted Patient [facility] - Medication Discharge Medications: Ambulatory Orders Sertraline HCl [Zoloft -] 50 mg PO DAILY #30 tablet 08/25/14 traZODone HCL [Desyrel -] 50 mg PO HS #30 tablet 08/25/14 Buprenorphine/Naloxone [Suboxone 8Mg/2Mg Sl Film -] 1 each SL DAILY 09/17/19 Albuterol Sulfate Inhaler - [Ventolin HFA Inhaler -] 2 inh IH Q4H PRN #1 inh 10/05 Gabapentin [Neurontin -] 300 mg PO Q8H #30 capsule 09/28/19 - Diagnosis (1) Encounter for monitoring Suboxone maintenance therapy Current Visit: Yes Status: Chronic (2) Alcohol dependence with withdrawal Current Visit: Yes Status: Acute Qualifiers: Complication of substance-induced condition: uncomplicated Qualified Code(s ): F10.230 - Alcohol dependence with withdrawal, uncomplicated (3) Asthma Current Visit: Yes Status: Chronic Qualifiers: Asthma severity: mild Asthma persistence: intermittent Asthma complication type: with status asthmaticus Qualified Code(s): J45.22 - Mild intermittent asthma with status asthmaticus (4) Hepatitis C Current Visit: Yes Status: Chronic Qualifiers: Viral hepatitis chronicity: carrier Qualified Code(s): B18.2 - Chronic viral hepatitis C (5) Nicotine dependence Current Visit: Yes Status: Acute Qualifiers: Nicotine product type: cigarettes Substance use status: in withdrawal Qualified Code(s): F17.213 - Nicotine dependence, cigarettes, with withdrawal (6) Substance induced mood disorder Current Visit: Yes Status: Suspected - AMA Did Patient Leave Against Medical Advice: No CIWA Score - CIWA Score Nausea/Vomitin-No Nausea/No Vomiting Muscle Tremors: 1-None Visible, but [place] Anxiety: 1-Mildly Anxious Agitation: 0-Normal Activity Paroxysmal Sweats: No Perspiration Orientation: 0-Oriented Tacttile Disturbances: 0-None Auditory Disturbances: 0-None Visual Disturbances: 0-None Headache: 0-None Present CIWA-Ar Total Score: 2
== END 2019-10-23 12:45 | disposition other institution (70) | DRG 773 ==
LOC: YASAS 08:16 → Y3N 10:18
PROVIDERS: ADMIT Allergy & Immunology; ATTEND Allergy & Immunology
PROC: HZ2ZZZZ Detoxification Services for Substance Abuse Treatment (ICD-10-PCS; principal; 2019-10-18)
DX: F10.230 Alcohol dependence with withdrawal, uncomplicated (principal); F11.20 Opioid dependence, uncomplicated; F14.20 Cocaine dependence, uncomplicated; F17.210 Nicotine dependence, cigarettes, uncomplicated; F19.24 Other psychoactive substance dependence with psychoactive substance-induced mood disorder; F32.9 Major depressive disorder, single episode, unspecified; J45.22 Mild intermittent asthma with status asthmaticus; B18.2 Chronic viral hepatitis C; M17.0 Bilateral primary osteoarthritis of knee; G47.00 Insomnia, unspecified; Z96.643 Presence of artificial hip joint, bilateral; Z91.013 Allergy to seafood
CPT/HCPCS: 36415; 80053; 81025; 84132; 85027; 86593; 87389

== ENCOUNTER 2019-10-23 13:00 | Inpatient (IN) | payer OTHER ==
--- NOTE | 2019-10-23 11:22 | HP ---
[facility] Rehab Assess/Revision - Admission History Admitted to Rehab from: [facility] Date of Admission to Rehab: 10/23/19 - Findings Detox History & Physical reviewed: Yes Concur with findings: Yes Comments/Additional Findings: tranferred from detox to rehab admission as per protocol Inpatient Rehab Admission - Rehab Decision to Admit Inpatient rehab admission?: Yes - Initial Determination Are CD services needed?: Yes Free of communicable disease: Yes Not in need of hospitalization: Yes - Rehab Admission Criteria Previous failed treatment: Yes Poor recovery environment: Yes Comorbidities: Yes Lacks judgement: Yes Patient is meeting Inpatient Rehab admission criteria:: Yes
[~2019-10-23 13:00] MED LIST changes: -ACETAMINOPHEN 325 MG TABLET (FP) PO PRN; -ALBUTEROL SO4 8 GM HFA INHALER IH PRN; +ALBUTEROL SO4 HFA INHALER IH PRN
--- NOTE | 2019-10-23 14:11 | PN ---
[facility] Progress Note Note: PATIENT TRANSFERRED TO REHAB TODAY FROM FOR OPIOD/ETOH/COCAINE DEPENDENCE. SHE IS ON SUBOXONE MAT 8MG SL DAILY. SHE IS KNOWN TO FACILITY DUE TO PREVIOUS ADMISSIONS. PMH INCLUDES Vital Signs (72 hours) 10/23/19 13:17 Temperature 97.9 F Pulse Rate 73 Respiratory 18 Rate Blood Pressure 113/74 ROS: DENIES OPIOD CRAVINGS, ETOH CRAVINGS, CP, SOB, SHAKES AND SWEATS PE: ALERT AND ORIENTED X 3 SKIN WARM AND DRY EOMS INTACT BL EXT FULL ROM, AMB AD LEWIS NO TREMORS A/P: OPIOD DEPENDENCE ETOH DEPENDENCE COCAINE DEPENDENCE LABS REVIEWED V/S STABLE CONTINUE WITH REHAB
[2019-10-23] MEDS: GABAPENTIN 300 MG CAPSULE PO SCH (21:33)
[2019-10-23] MEDS: THIAMINE HCL 100 MG TABLET (FP) PO SCH (21:33)
[2019-10-23] MEDS: CLOTRIMAZOLE 1% CREAM 15 GM TUBE TP SCH (21:34)
[2019-10-23] MEDS: MELATONIN 5 MG TABLETS PO PRN (21:36)
[2019-10-24] MEDS: GABAPENTIN 300 MG CAPSULE PO SCH ×4 (00:31→21:13)
[2019-10-24] MEDS: IBUPROFEN 400 MG TABLET (FP) PO PRN ×2 (06:51→21:14)
[2019-10-24] MEDS ORDERED: PT OWN MED DRAWER 7, Y5N ONE ×2 (09:12→21:16)
[2019-10-24] MEDS: CLOTRIMAZOLE 1% CREAM 15 GM TUBE TP SCH ×2 (10:13→21:13)
[2019-10-24] MEDS: BUPRENORPHINE/NALOXONE 8 MG/2 MG FILM PACKET SL SCH (10:13)
[2019-10-24] MEDS: PRENATAL VITAMINS W/ FOLIC ACID TABLET (FP) PO SCH (10:13)
[2019-10-24] MEDS: NICOTINE 14 MG/24 HOURS TOPICAL PATCH TD SCH (10:13)
--- NOTE | 2019-10-24 11:10 | PN ---
[facility] Progress Note Note: Pt requesting for Lidocaine patch for back and leg pain. Hx knee surgeries. Vital Signs - 24 hr 10/23/19 10/24/19 13:17 03:30 Temperature 97.9 F Pulse Rate 73 Respiratory 18 16 Rate Blood Pressure 113/74 Knees;old healed surgical scars no redness or swelling A/P chronic back/ knee pain Lidocaine patch 5% daily
[2019-10-24] MEDS ORDERED: PNEUMOC 13-VAL CONJ-DIP CRM/PF 0.5 ML DISP.SYRIN IM ONE (12:00)
[2019-10-24] MEDS ORDERED: PNEUMOCOCCAL 23 VACCINE 0.5 ML VIAL IM ONE (12:00)
[2019-10-24] MEDS ORDERED: FLU VACCINE QUAD 60 MCG/0.5 ML (MDV 19-20) IM ONE (12:00)
[2019-10-24] MEDS: METHOCARBAMOL 500 MG TABLET PO PRN (12:03)
[2019-10-24] MEDS: LIDOCAINE 5% TOPICAL PATCH TP SCH (12:03)
[2019-10-24] MEDS: LIDOCAINE PATCH REMOVAL MC SCH (21:13)
[2019-10-24] MEDS: MELATONIN 5 MG TABLETS PO PRN (21:14)
[2019-10-24] MEDS: THIAMINE HCL 100 MG TABLET (FP) PO SCH (21:14)
[2019-10-25] MEDS: METHOCARBAMOL 500 MG TABLET PO PRN ×2 (01:02→10:14)
[2019-10-25] MEDS: GABAPENTIN 300 MG CAPSULE PO SCH ×3 (06:45→21:17)
[2019-10-25] MEDS: IBUPROFEN 400 MG TABLET (FP) PO PRN (06:45)
[2019-10-25] MEDS: LIDOCAINE 5% TOPICAL PATCH TP SCH (10:12)
[2019-10-25] MEDS: CLOTRIMAZOLE 1% CREAM 15 GM TUBE TP SCH ×2 (10:12→21:18)
[2019-10-25] MEDS: BUPRENORPHINE/NALOXONE 8 MG/2 MG FILM PACKET SL SCH (10:13)
[2019-10-25] MEDS: NICOTINE 14 MG/24 HOURS TOPICAL PATCH TD SCH (10:13)
[2019-10-25] MEDS: PRENATAL VITAMINS W/ FOLIC ACID TABLET (FP) PO SCH (10:13)
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
[2019-10-25] MEDS: hydrOXYzine PAMOATE 25 MG CAPSULE (FP) PO PRN ×2 (13:44→18:59)
[2019-10-25] MEDS: THIAMINE HCL 100 MG TABLET (FP) PO SCH (21:16)
[2019-10-25] MEDS: LIDOCAINE PATCH REMOVAL MC SCH (21:17)
[2019-10-25] MEDS: MELATONIN 5 MG TABLETS PO PRN (21:17)
[2019-10-26] MEDS: hydrOXYzine PAMOATE 25 MG CAPSULE (FP) PO PRN ×2 (00:43→21:53)
[2019-10-26] MEDS: SUVOREXANT 10 MG TABLET PO PRN ×2 (00:43→21:54)
[2019-10-26] MEDS: METHOCARBAMOL 500 MG TABLET PO PRN ×2 (06:34→21:53)
[2019-10-26] MEDS: GABAPENTIN 300 MG CAPSULE PO SCH ×3 (06:34→21:53)
[2019-10-26] MEDS: LIDOCAINE 5% TOPICAL PATCH TP SCH (09:17)
[2019-10-26] MEDS: NICOTINE 14 MG/24 HOURS TOPICAL PATCH TD SCH (09:18)
[2019-10-26] MEDS: PRENATAL VITAMINS W/ FOLIC ACID TABLET (FP) PO SCH (09:18)
[2019-10-26] MEDS: CLOTRIMAZOLE 1% CREAM 15 GM TUBE TP SCH ×2 (09:18→21:54)
[2019-10-26] MEDS: BUPRENORPHINE/NALOXONE 8 MG/2 MG FILM PACKET SL SCH (09:18)
[2019-10-26] MEDS: COLLOIDAL OATMEAL 1 BAR EACH TP PRN (09:20)
[2019-10-26] MEDS: IBUPROFEN 400 MG TABLET (FP) PO PRN (09:20)
[2019-10-26] MEDS: THIAMINE HCL 100 MG TABLET (FP) PO SCH (21:53)
[2019-10-26] MEDS: LIDOCAINE PATCH REMOVAL MC SCH (21:54)
[2019-10-27] MEDS: ACETAMINOPHEN 325 MG TABLET (FP) PO PRN (04:08)
[2019-10-27] MEDS: hydrOXYzine PAMOATE 25 MG CAPSULE (FP) PO PRN ×4 (04:08→19:53)
[2019-10-27] MEDS: GABAPENTIN 300 MG CAPSULE PO SCH ×3 (07:41→21:45)
[2019-10-27] MEDS ORDERED: PT OWN MED DRAWER 7, Y5N ONE (08:48)
[2019-10-27] MEDS: PRENATAL VITAMINS W/ FOLIC ACID TABLET (FP) PO SCH (10:15)
[2019-10-27] MEDS: LIDOCAINE 5% TOPICAL PATCH TP SCH (10:15)
[2019-10-27] MEDS: BUPRENORPHINE/NALOXONE 8 MG/2 MG FILM PACKET SL SCH (10:16)
[2019-10-27] MEDS: CLOTRIMAZOLE 1% CREAM 15 GM TUBE TP SCH ×2 (10:18→21:46)
[2019-10-27] MEDS: NICOTINE 14 MG/24 HOURS TOPICAL PATCH TD SCH (10:18)
[2019-10-27] MEDS: METHOCARBAMOL 500 MG TABLET PO PRN ×2 (14:38→19:53)
[2019-10-27] MEDS: MELATONIN 5 MG TABLETS PO PRN (21:45)
[2019-10-27] MEDS: THIAMINE HCL 100 MG TABLET (FP) PO SCH (21:45)
[2019-10-27] MEDS: SUVOREXANT 10 MG TABLET PO PRN (21:46)
[2019-10-27] MEDS: LIDOCAINE PATCH REMOVAL MC SCH (21:46)
[2019-10-28] MEDS: IBUPROFEN 400 MG TABLET (FP) PO PRN ×2 (02:39→21:36)
[2019-10-28] MEDS: hydrOXYzine PAMOATE 25 MG CAPSULE (FP) PO PRN ×2 (02:39→21:35)
[2019-10-28] MEDS: METHOCARBAMOL 500 MG TABLET PO PRN ×2 (06:39→21:35)
[2019-10-28] MEDS: GABAPENTIN 300 MG CAPSULE PO SCH ×3 (06:39→21:35)
[2019-10-28] MEDS: PRENATAL VITAMINS W/ FOLIC ACID TABLET (FP) PO SCH (09:10)
[2019-10-28] MEDS: NICOTINE 14 MG/24 HOURS TOPICAL PATCH TD SCH (09:11)
[2019-10-28] MEDS: BUPRENORPHINE/NALOXONE 8 MG/2 MG FILM PACKET SL SCH (09:11)
[2019-10-28] MEDS: LIDOCAINE 5% TOPICAL PATCH TP SCH (09:11)
[2019-10-28] MEDS: CLOTRIMAZOLE 1% CREAM 15 GM TUBE TP SCH ×2 (09:11→21:35)
--- NOTE | 2019-10-28 18:39 | PN ---
[facility] Progress Note Note: Psychiatric nurse practitioner note: Delayed note: Belsomra 10mg PRN renewed X3 days. Verbal consent given.
[2019-10-28] MEDS: LIDOCAINE PATCH REMOVAL MC SCH (21:34)
[2019-10-28] MEDS: THIAMINE HCL 100 MG TABLET (FP) PO SCH (21:35)
[2019-10-28] MEDS: MELATONIN 5 MG TABLETS PO PRN (21:35)
[2019-10-28] MEDS: SUVOREXANT 10 MG TABLET PO PRN (21:37)
[2019-10-29] MEDS: ACETAMINOPHEN 325 MG TABLET (FP) PO PRN (02:43)
[2019-10-29] MEDS: hydrOXYzine PAMOATE 25 MG CAPSULE (FP) PO PRN ×2 (02:43→18:53)
[2019-10-29] MEDS: METHOCARBAMOL 500 MG TABLET PO PRN ×2 (07:08→21:37)
[2019-10-29] MEDS: GABAPENTIN 300 MG CAPSULE PO SCH ×3 (07:08→21:36)
[2019-10-29] MEDS: IBUPROFEN 400 MG TABLET (FP) PO PRN ×2 (09:04→18:53)
[2019-10-29] MEDS: NICOTINE 14 MG/24 HOURS TOPICAL PATCH TD SCH (09:05)
[2019-10-29] MEDS: PRENATAL VITAMINS W/ FOLIC ACID TABLET (FP) PO SCH (09:05)
[2019-10-29] MEDS: LIDOCAINE 5% TOPICAL PATCH TP SCH (09:06)
[2019-10-29] MEDS: BUPRENORPHINE/NALOXONE 8 MG/2 MG FILM PACKET SL SCH (09:06)
[2019-10-29] MEDS: CLOTRIMAZOLE 1% CREAM 15 GM TUBE TP SCH ×2 (09:07→22:05)
[2019-10-29] MEDS ORDERED: PT OWN MED DRAWER 7, Y5N ONE (11:58)
[2019-10-29] MEDS: LIDOCAINE PATCH REMOVAL MC SCH (21:36)
[2019-10-29] MEDS: THIAMINE HCL 100 MG TABLET (FP) PO SCH (21:36)
[2019-10-29] MEDS: SUVOREXANT 10 MG TABLET PO PRN (21:36)
[2019-10-29] MEDS: MELATONIN 5 MG TABLETS PO PRN (21:37)
[2019-10-30] MEDS: hydrOXYzine PAMOATE 25 MG CAPSULE (FP) PO PRN ×3 (02:45→21:39)
[2019-10-30] MEDS: IBUPROFEN 400 MG TABLET (FP) PO PRN ×2 (02:45→18:17)
[2019-10-30] MEDS: GABAPENTIN 300 MG CAPSULE PO SCH ×3 (07:37→21:39)
[2019-10-30] MEDS: METHOCARBAMOL 500 MG TABLET PO PRN ×2 (07:37→18:17)
[2019-10-30] MEDS ORDERED: PT OWN MED DRAWER 7, Y5N ONE (08:42)
[2019-10-30] MEDS: LIDOCAINE 5% TOPICAL PATCH TP SCH ×2 (10:01→18:14)
[2019-10-30] MEDS: BUPRENORPHINE/NALOXONE 8 MG/2 MG FILM PACKET SL SCH (10:01)
[2019-10-30] MEDS: PRENATAL VITAMINS W/ FOLIC ACID TABLET (FP) PO SCH (10:01)
[2019-10-30] MEDS: CLOTRIMAZOLE 1% CREAM 15 GM TUBE TP SCH ×2 (10:05→21:42)
[2019-10-30] MEDS: NICOTINE 14 MG/24 HOURS TOPICAL PATCH TD SCH (10:05)
[2019-10-30] MEDS: NICOTINE POLACRILEX 2 MG GUM BC PRN (10:06)
[2019-10-30] MEDS: THIAMINE HCL 100 MG TABLET (FP) PO SCH (21:39)
[2019-10-30] MEDS: MELATONIN 5 MG TABLETS PO PRN (21:39)
[2019-10-30] MEDS: SUVOREXANT 10 MG TABLET PO PRN (21:41)
[2019-10-30] MEDS: LIDOCAINE PATCH REMOVAL MC SCH (21:41)
[2019-10-30] MEDS: METHYL SALICYLATE/MENTHOL OINT 30 GM TUBE TP SCH (21:41)
[2019-10-31] MEDS: ACETAMINOPHEN 325 MG TABLET (FP) PO PRN (02:37)
[2019-10-31] MEDS: METHOCARBAMOL 500 MG TABLET PO PRN ×2 (04:36→19:48)
[2019-10-31] MEDS: GABAPENTIN 300 MG CAPSULE PO SCH ×3 (06:34→22:12)
[2019-10-31] MEDS ORDERED: PT OWN MED DRAWER 7, Y5N ONE ×2 (09:02→22:16)
[2019-10-31] MEDS: BUPRENORPHINE/NALOXONE 8 MG/2 MG FILM PACKET SL SCH (10:13)
[2019-10-31] MEDS: LIDOCAINE 5% TOPICAL PATCH TP SCH (10:13)
[2019-10-31] MEDS: NICOTINE 14 MG/24 HOURS TOPICAL PATCH TD SCH (10:13)
[2019-10-31] MEDS: METHYL SALICYLATE/MENTHOL OINT 30 GM TUBE TP SCH ×2 (10:14→22:16)
[2019-10-31] MEDS: PRENATAL VITAMINS W/ FOLIC ACID TABLET (FP) PO SCH (10:14)
[2019-10-31] MEDS: CLOTRIMAZOLE 1% CREAM 15 GM TUBE TP SCH ×2 (10:14→22:14)
[2019-10-31] MEDS: NICOTINE POLACRILEX 2 MG GUM BC PRN (10:15)
[2019-10-31] MEDS: IBUPROFEN 400 MG TABLET (FP) PO PRN ×2 (10:16→19:48)
[2019-10-31] MEDS: hydrOXYzine PAMOATE 25 MG CAPSULE (FP) PO PRN (19:47)
[2019-10-31] MEDS: THIAMINE HCL 100 MG TABLET (FP) PO SCH (22:12)
[2019-10-31] MEDS: LIDOCAINE PATCH REMOVAL MC SCH (22:14)
[2019-10-31] MEDS: SUVOREXANT 10 MG TABLET PO PRN (22:16)
[2019-11-01] MEDS: METHOCARBAMOL 500 MG TABLET PO PRN ×2 (06:28→21:55)
[2019-11-01] MEDS: GABAPENTIN 300 MG CAPSULE PO SCH ×3 (06:28→21:55)
[2019-11-01] MEDS: ACETAMINOPHEN 325 MG TABLET (FP) PO PRN (06:28)
[2019-11-01] MEDS ORDERED: PT OWN MED DRAWER 7, Y5N ONE ×2 (09:27→13:17)
[2019-11-01] MEDS: NICOTINE 14 MG/24 HOURS TOPICAL PATCH TD SCH (10:12)
[2019-11-01] MEDS: PRENATAL VITAMINS W/ FOLIC ACID TABLET (FP) PO SCH (10:12)
[2019-11-01] MEDS: BUPRENORPHINE/NALOXONE 8 MG/2 MG FILM PACKET SL SCH (10:12)
[2019-11-01] MEDS: IBUPROFEN 400 MG TABLET (FP) PO PRN (10:13)
[2019-11-01] MEDS: hydrOXYzine PAMOATE 25 MG CAPSULE (FP) PO PRN ×2 (10:13→21:55)
[2019-11-01] MEDS: LIDOCAINE 5% TOPICAL PATCH TP SCH (12:55)
[2019-11-01] MEDS: METHYL SALICYLATE/MENTHOL OINT 30 GM TUBE TP SCH ×2 (12:56→21:55)
[2019-11-01] MEDS: CLOTRIMAZOLE 1% CREAM 15 GM TUBE TP SCH ×2 (12:56→21:56)
[2019-11-01] MEDS: THIAMINE HCL 100 MG TABLET (FP) PO SCH (21:55)
[2019-11-01] MEDS: MELATONIN 5 MG TABLETS PO PRN (21:55)
[2019-11-01] MEDS: LIDOCAINE PATCH REMOVAL MC SCH (21:57)
[2019-11-02] MEDS: hydrOXYzine PAMOATE 25 MG CAPSULE (FP) PO PRN ×2 (02:52→21:38)
[2019-11-02] MEDS: IBUPROFEN 400 MG TABLET (FP) PO PRN (02:52)
[2019-11-02] MEDS: GABAPENTIN 300 MG CAPSULE PO SCH ×3 (07:43→21:36)
[2019-11-02] MEDS: METHOCARBAMOL 500 MG TABLET PO PRN ×2 (07:43→21:36)
[2019-11-02] MEDS ORDERED: PT OWN MED DRAWER 7, Y5N ONE ×2 (08:47→20:56)
[2019-11-02] MEDS: METHYL SALICYLATE/MENTHOL OINT 30 GM TUBE TP SCH ×2 (10:12→21:34)
[2019-11-02] MEDS: BUPRENORPHINE/NALOXONE 8 MG/2 MG FILM PACKET SL SCH (10:13)
[2019-11-02] MEDS: PRENATAL VITAMINS W/ FOLIC ACID TABLET (FP) PO SCH (10:13)
[2019-11-02] MEDS: CLOTRIMAZOLE 1% CREAM 15 GM TUBE TP SCH ×2 (10:13→21:38)
[2019-11-02] MEDS: NICOTINE 14 MG/24 HOURS TOPICAL PATCH TD SCH (10:14)
[2019-11-02] MEDS: LIDOCAINE 5% TOPICAL PATCH TP SCH (10:19)
[2019-11-02] MEDS: LIDOCAINE PATCH REMOVAL MC SCH (21:34)
[2019-11-02] MEDS: THIAMINE HCL 100 MG TABLET (FP) PO SCH (21:36)
[2019-11-02] MEDS: MELATONIN 5 MG TABLETS PO PRN (21:39)
[2019-11-03] MEDS: IBUPROFEN 400 MG TABLET (FP) PO PRN (03:15)
[2019-11-03] MEDS: hydrOXYzine PAMOATE 25 MG CAPSULE (FP) PO PRN ×2 (03:15→22:09)
[2019-11-03] MEDS: METHOCARBAMOL 500 MG TABLET PO PRN ×2 (07:38→22:09)
[2019-11-03] MEDS: GABAPENTIN 300 MG CAPSULE PO SCH ×3 (07:39→22:05)
[2019-11-03] MEDS ORDERED: PT OWN MED DRAWER 7, Y5N ONE ×2 (08:50→19:49)
[2019-11-03] MEDS: PRENATAL VITAMINS W/ FOLIC ACID TABLET (FP) PO SCH (10:06)
[2019-11-03] MEDS: NICOTINE 14 MG/24 HOURS TOPICAL PATCH TD SCH (10:06)
[2019-11-03] MEDS: METHYL SALICYLATE/MENTHOL OINT 30 GM TUBE TP SCH ×2 (10:06→22:06)
[2019-11-03] MEDS: CLOTRIMAZOLE 1% CREAM 15 GM TUBE TP SCH ×2 (10:07→22:06)
[2019-11-03] MEDS: LIDOCAINE 5% TOPICAL PATCH TP SCH (10:07)
[2019-11-03] MEDS: BUPRENORPHINE/NALOXONE 8 MG/2 MG FILM PACKET SL SCH (10:07)
--- NOTE | 2019-11-03 13:57 | PN ---
S Progress Note Note: Patient complains of sleeping poorly despite taking belsomra 10 mg/hs. Will increase Belsomra dosage to 15 mg/hs prn
[2019-11-03] MEDS: LIDOCAINE PATCH REMOVAL MC SCH (22:05)
[2019-11-03] MEDS: THIAMINE HCL 100 MG TABLET (FP) PO SCH (22:05)
[2019-11-03] MEDS: SUVOREXANT 15 MG TABLET PO PRN (22:08)
[2019-11-04] MEDS: IBUPROFEN 400 MG TABLET (FP) PO PRN ×2 (05:40→19:01)
[2019-11-04] MEDS: GABAPENTIN 300 MG CAPSULE PO SCH ×3 (08:12→21:44)
[2019-11-04] MEDS: CLOTRIMAZOLE 1% CREAM 15 GM TUBE TP SCH ×2 (09:46→21:44)
[2019-11-04] MEDS: NICOTINE 14 MG/24 HOURS TOPICAL PATCH TD SCH (09:46)
[2019-11-04] MEDS: METHYL SALICYLATE/MENTHOL OINT 30 GM TUBE TP SCH ×2 (09:46→21:45)
[2019-11-04] MEDS: hydrOXYzine PAMOATE 25 MG CAPSULE (FP) PO PRN ×2 (09:47→19:01)
[2019-11-04] MEDS: PRENATAL VITAMINS W/ FOLIC ACID TABLET (FP) PO SCH (09:47)
[2019-11-04] MEDS: BUPRENORPHINE/NALOXONE 8 MG/2 MG FILM PACKET SL SCH (09:47)
[2019-11-04] MEDS: METHOCARBAMOL 500 MG TABLET PO PRN ×2 (09:48→21:43)
[2019-11-04] MEDS: LIDOCAINE 5% TOPICAL PATCH TP SCH (09:48)
[2019-11-04] MEDS ORDERED: PT OWN MED DRAWER 7, Y5N ONE (10:50)
[2019-11-04] MEDS: NICOTINE POLACRILEX 2 MG GUM BC PRN (15:10)
[2019-11-04] MEDS: LIDOCAINE PATCH REMOVAL MC SCH (21:42)
[2019-11-04] MEDS: MELATONIN 5 MG TABLETS PO PRN (21:42)
[2019-11-04] MEDS: THIAMINE HCL 100 MG TABLET (FP) PO SCH (21:42)
[2019-11-04] MEDS: SUVOREXANT 15 MG TABLET PO PRN (21:46)
[2019-11-05] MEDS: hydrOXYzine PAMOATE 25 MG CAPSULE (FP) PO PRN ×2 (04:44→22:23)
[2019-11-05] MEDS: IBUPROFEN 400 MG TABLET (FP) PO PRN ×3 (04:44→22:23)
[2019-11-05] MEDS: GABAPENTIN 300 MG CAPSULE PO SCH ×3 (08:29→22:25)
[2019-11-05] MEDS ORDERED: PT OWN MED DRAWER 7, Y5N ONE ×3 (08:50→22:27)
[2019-11-05] MEDS: LIDOCAINE 5% TOPICAL PATCH TP SCH (10:51)
[2019-11-05] MEDS: BUPRENORPHINE/NALOXONE 8 MG/2 MG FILM PACKET SL SCH (10:51)
[2019-11-05] MEDS: NICOTINE 14 MG/24 HOURS TOPICAL PATCH TD SCH (10:51)
[2019-11-05] MEDS: PRENATAL VITAMINS W/ FOLIC ACID TABLET (FP) PO SCH (10:51)
[2019-11-05] MEDS: METHYL SALICYLATE/MENTHOL OINT 30 GM TUBE TP SCH ×2 (10:51→22:26)
[2019-11-05] MEDS: CLOTRIMAZOLE 1% CREAM 15 GM TUBE TP SCH ×2 (10:51→22:27)
[2019-11-05] MEDS: NICOTINE POLACRILEX 2 MG GUM BC PRN (10:51)
[2019-11-05] MEDS: METHOCARBAMOL 500 MG TABLET PO PRN ×2 (10:52→22:23)
[2019-11-05] MEDS: MELATONIN 5 MG TABLETS PO PRN (22:23)
[2019-11-05] MEDS: THIAMINE HCL 100 MG TABLET (FP) PO SCH (22:23)
[2019-11-05] MEDS: LIDOCAINE PATCH REMOVAL MC SCH (22:25)
[2019-11-05] MEDS: SUVOREXANT 15 MG TABLET PO PRN (22:25)
[2019-11-05] MEDS: COLLOIDAL OATMEAL 1 BAR EACH TP PRN (22:28)
[2019-11-06] MEDS: METHOCARBAMOL 500 MG TABLET PO PRN ×2 (06:37→21:51)
[2019-11-06] MEDS: IBUPROFEN 400 MG TABLET (FP) PO PRN (06:37)
[2019-11-06] MEDS: GABAPENTIN 300 MG CAPSULE PO SCH ×3 (06:37→21:51)
[2019-11-06] MEDS ORDERED: PT OWN MED DRAWER 7, Y5N ONE (08:52)
[2019-11-06] MEDS: PRENATAL VITAMINS W/ FOLIC ACID TABLET (FP) PO SCH (10:20)
[2019-11-06] MEDS: LIDOCAINE 5% TOPICAL PATCH TP SCH (10:20)
[2019-11-06] MEDS: METHYL SALICYLATE/MENTHOL OINT 30 GM TUBE TP SCH ×2 (10:20→21:52)
[2019-11-06] MEDS: BUPRENORPHINE/NALOXONE 8 MG/2 MG FILM PACKET SL SCH (10:20)
[2019-11-06] MEDS: hydrOXYzine PAMOATE 25 MG CAPSULE (FP) PO PRN ×2 (10:22→21:51)
[2019-11-06] MEDS: CLOTRIMAZOLE 1% CREAM 15 GM TUBE TP SCH ×2 (10:26→21:52)
[2019-11-06] MEDS: NICOTINE 14 MG/24 HOURS TOPICAL PATCH TD SCH (10:26)
--- NOTE | 2019-11-06 10:43 | PN ---
Psychiatric Progress Note Vital Signs: Vital Signs Period Temp Pulse Resp BP Sys/Vidal Pulse Ox Last 24 Hr 97.6 F 73 18 112/72 Date of Session: 11/06/19 Chief Complaint:: " I'm still having trouble sleeping." HPI: Patient admitted to for for alcohol, opioid and cocaine. Consultation ordered for insomnia. ROS: Patient is alert +oriented x3. Current Medications: Active Medications Generic Name Dose Route Start Last Admin Trade Name Freq PRN Reason Stop Dose Admin Acetaminophen 650 mg 10/23/19 11:22 11/01/19 06:28 Tylenol - PO 650 mg Q4H PRN Administration FEVER Al Hydroxide/Mg Hydroxide 30 ml 10/23/19 11:22 Mylanta Oral Suspension - PO Q6H PRN DYSPEPSIA Albuterol Sulfate 2 puff 10/23/19 11:24 Ventolin Hfa Inhaler - IH Q4H PRN SHORTNESS OF BREATH Buprenorphine/Naloxone 1 each 10/31/19 10:00 11/06/19 10:20 Suboxone 8 Mg/2 Mg Film Packet SL 11/07/19 09:59 1 each DAILY RAMBO Administration Clotrimazole 1 applic 10/23/19 22:00 11/06/19 10:26 Lotrimin 1% Cream - TP Not Given BID RAMBO Colloidal Oatmeal 1 applic 10/23/19 11:24 11/05/19 22:28 Aveeno Soap - TP 1 applic DAILY PRN Administration HYGEINE Eucalyptus/Menthol/Phenol/Sorbitol 1 each 10/23/19 11:22 Cepastat Lozenge - MM Q4H PRN SORE THROAT Gabapentin 300 mg 10/24/19 06:00 11/06/19 06:37 Neurontin - PO 300 mg TID RAMBO Administration Guaifenesin 10 ml 10/23/19 11:22 Robitussin - PO Q6H PRN COUGH Hydroxyzine Pamoate 25 mg 10/25/19 13:35 11/06/19 10:22 Vistaril - PO 25 mg Q4H PRN Administration ANXIETY Ibuprofen 400 mg 10/23/19 11:22 11/06/19 06:37 Motrin - PO 400 mg Q6H PRN Administration Pain level 4-6 Lidocaine 2 patch 10/30/19 15:55 11/06/19 10:20 Lidoderm Patch - TP 2 patch DAILY RAMBO Administration Loperamide HCl 4 mg 10/23/19 11:22 Imodium - PO Q6H PRN DIARRHEA Magnesium Citrate 300 ml 10/23/19 11:22 Citroma - PO Q48H PRN CONSTIPATION Magnesium Hydroxide 30 ml 10/23/19 11:22 Milk Of Magnesia - PO DAILY PRN CONSTIPATION Melatonin 10 mg 11/06/19 22:00 Melatonin PO HS PRN INSOMNIA Methocarbamol 500 mg 10/24/19 11:09 11/06/19 06:37 Robaxin - PO 500 mg TID PRN Administration MUSCLE SPASMS Methyl Salicylate 1 applic 10/30/19 22:00 11/06/19 10:20 Vignesh-Leonardo - TP 1 applic BID RAMBO Administration Miscellaneous 1 each 10/24/19 22:00 11/05/19 22:25 Lidoderm Patch Removal MC 1 each DAILY@2200 RAMBO Administration Nicotine 14 mg 10/24/19 10:00 11/06/19 10:26 Nicoderm Patch - TD Not Given DAILY RAMBO Nicotine Polacrilex 2 mg 10/23/19 11:22 11/05/19 10:51 Nicorette Gum - BC 2 mg Q2H PRN Administration NICOTINE REPLACEMENT RX Multivit/Folic Acid/Iron 1 tab 10/24/19 10:00 11/06/19 10:20 Vitamins (Sjr) - PO 1 tab DAILY RAMBO Administration Pseudoephedrine/Triprolidine 1 combo 10/23/19 11:22 Actifed - PO TID PRN NASAL CONGESTION Suvorexant 20 mg 11/06/19 22:00 Belsomra PO 11/09/19 21:59 HS PRN INSOMNIA Thiamine HCl 100 mg 10/23/19 22:00 11/05/19 22:23 Vitamin B1 - PO 100 mg HS RAMBO Administration Medication(s) Change(s): Yes. Will d/c Belsomra 15mg HS + Melatonin 5mg HS. Will order Belsomra 20mg HS + Melatonin 10mg HS. Current Side Effect: No Lab tests ordered: No Lab tests reviewed: Yes Provider note:: Patient seen by Dr. Martin. Dr. Martin's note read and appreciated. Today, patient reports difficulty sleeping. Medications reviewed. Patient is ordered Belsomra 15mg HS + Melatonin 5mg HS. Despite taking both medications she continues to experience poor sleep. Will d/c Belsomra 15mg HS + Melatonin 5mg. Will order Belsomra 20mg HS + Melatonin 10mg HS. Patient educated on the importance of proper sleep hygiene. Benefits and side effects discussed. Verbal consent given. Total face to face time:: 25 Mental Status Exam - Mental Status Exam Alert and Oriented to: Time, Place, Person Cognitive Function: Good Patient Appearance: Well Groomed Mood: Euthymic Affect: Mood Congruent Patient Behavior: Cooperative Speech Pattern: Appropriate Voice Loudness: Normal Thought Process: Goal Oriented Thought Disorder: Not Present Hallucinations: Denies Suicidal Ideation: Denies Homicidal Ideation: Denies Insight/Judgement: Poor Sleep: Poorly Appetite: Fair Muscle strength/Tone: Normal Gait/Station: Normal Psychiatric Treatment Plan - Problem List (1) Substance induced mood disorder Current Visit: Yes (2) Substance-induced sleep disorder Current Visit: Yes (3) Mood disorder Current Visit: Yes (4) Alcohol dependence Current Visit: Yes (5) Cocaine dependence Current Visit: Yes (6) Nicotine dependence Current Visit: Yes Qualifiers: Nicotine product type: cigarettes Substance use status: in withdrawal Qualified Code(s): F17.213 - Nicotine dependence, cigarettes, with withdrawal (7) Opioid dependence Current Visit: Yes
[2019-11-06] MEDS: THIAMINE HCL 100 MG TABLET (FP) PO SCH (21:51)
[2019-11-06] MEDS: MELATONIN 5 MG TABLETS PO PRN (21:52)
[2019-11-06] MEDS: LIDOCAINE PATCH REMOVAL MC SCH (21:52)
[2019-11-06] MEDS ORDERED: SUVOREXANT 20 MG TABLET PO PRN (22:00)
[2019-11-07] MEDS: GABAPENTIN 300 MG CAPSULE PO SCH ×3 (07:21→22:50)
[2019-11-07] MEDS: METHYL SALICYLATE/MENTHOL OINT 30 GM TUBE TP SCH ×2 (09:05→22:45)
[2019-11-07] MEDS: LIDOCAINE 5% TOPICAL PATCH TP SCH (09:05)
[2019-11-07] MEDS: CLOTRIMAZOLE 1% CREAM 15 GM TUBE TP SCH ×2 (09:06→22:46)
[2019-11-07] MEDS: PRENATAL VITAMINS W/ FOLIC ACID TABLET (FP) PO SCH (09:06)
[2019-11-07] MEDS: BUPRENORPHINE/NALOXONE 8 MG/2 MG FILM PACKET SL SCH (09:06)
[2019-11-07] MEDS: NICOTINE 14 MG/24 HOURS TOPICAL PATCH TD SCH (09:06)
[2019-11-07] MEDS: hydrOXYzine PAMOATE 25 MG CAPSULE (FP) PO PRN ×2 (18:20→22:51)
[2019-11-07] MEDS ORDERED: PT OWN MED DRAWER 7, Y5N ONE (21:08)
[2019-11-07] MEDS: LIDOCAINE PATCH REMOVAL MC SCH (22:44)
[2019-11-07] MEDS: THIAMINE HCL 100 MG TABLET (FP) PO SCH (22:50)
[2019-11-07] MEDS: METHOCARBAMOL 500 MG TABLET PO PRN (22:50)
[2019-11-07] MEDS: MELATONIN 5 MG TABLETS PO PRN (22:52)
[2019-11-08] MEDS: IBUPROFEN 400 MG TABLET (FP) PO PRN (01:09)
[2019-11-08] MEDS: GABAPENTIN 300 MG CAPSULE PO SCH ×3 (07:47→21:31)
[2019-11-08] MEDS: BUPRENORPHINE/NALOXONE 8 MG/2 MG FILM PACKET SL SCH (09:51)
[2019-11-08] MEDS: PRENATAL VITAMINS W/ FOLIC ACID TABLET (FP) PO SCH (09:51)
[2019-11-08] MEDS: LIDOCAINE 5% TOPICAL PATCH TP SCH (09:51)
[2019-11-08] MEDS: hydrOXYzine PAMOATE 25 MG CAPSULE (FP) PO PRN (09:52)
[2019-11-08] MEDS: NICOTINE 14 MG/24 HOURS TOPICAL PATCH TD SCH (09:53)
[2019-11-08] MEDS: ACETAMINOPHEN 325 MG TABLET (FP) PO PRN (09:54)
[2019-11-08] MEDS: METHYL SALICYLATE/MENTHOL OINT 30 GM TUBE TP SCH ×2 (09:54→21:32)
[2019-11-08] MEDS: CLOTRIMAZOLE 1% CREAM 15 GM TUBE TP SCH ×2 (09:54→21:32)
[2019-11-08] MEDS: NICOTINE POLACRILEX 2 MG GUM BC PRN (09:54)
[2019-11-08] MEDS: THIAMINE HCL 100 MG TABLET (FP) PO SCH (21:30)
[2019-11-08] MEDS: MELATONIN 5 MG TABLETS PO PRN (21:31)
[2019-11-08] MEDS: METHOCARBAMOL 500 MG TABLET PO PRN (21:31)
[2019-11-08] MEDS: LIDOCAINE PATCH REMOVAL MC SCH (21:32)
[2019-11-09] MEDS: GABAPENTIN 300 MG CAPSULE PO SCH ×3 (07:33→21:27)
[2019-11-09] MEDS ORDERED: PT OWN MED DRAWER 7, Y5N ONE (08:24)
[2019-11-09] MEDS: PRENATAL VITAMINS W/ FOLIC ACID TABLET (FP) PO SCH (09:29)
[2019-11-09] MEDS: METHYL SALICYLATE/MENTHOL OINT 30 GM TUBE TP SCH ×2 (09:29→21:30)
[2019-11-09] MEDS: LIDOCAINE 5% TOPICAL PATCH TP SCH (09:29)
[2019-11-09] MEDS: NICOTINE 14 MG/24 HOURS TOPICAL PATCH TD SCH (09:30)
[2019-11-09] MEDS: CLOTRIMAZOLE 1% CREAM 15 GM TUBE TP SCH ×2 (09:30→21:31)
[2019-11-09] MEDS: BUPRENORPHINE/NALOXONE 8 MG/2 MG FILM PACKET SL SCH (09:30)
[2019-11-09] MEDS: hydrOXYzine PAMOATE 25 MG CAPSULE (FP) PO PRN ×2 (09:31→21:27)
[2019-11-09] MEDS: IBUPROFEN 400 MG TABLET (FP) PO PRN (19:39)
[2019-11-09] MEDS: MELATONIN 5 MG TABLETS PO PRN (21:25)
[2019-11-09] MEDS: THIAMINE HCL 100 MG TABLET (FP) PO SCH (21:25)
[2019-11-09] MEDS: METHOCARBAMOL 500 MG TABLET PO PRN (21:27)
[2019-11-09] MEDS: LIDOCAINE PATCH REMOVAL MC SCH (21:28)
[2019-11-10] MEDS: hydrOXYzine PAMOATE 25 MG CAPSULE (FP) PO PRN ×3 (03:02→21:20)
[2019-11-10] MEDS: METHOCARBAMOL 500 MG TABLET PO PRN ×2 (03:03→18:37)
[2019-11-10] MEDS: IBUPROFEN 400 MG TABLET (FP) PO PRN (03:03)
[2019-11-10] MEDS: GABAPENTIN 300 MG CAPSULE PO SCH ×3 (06:47→21:20)
[2019-11-10] MEDS ORDERED: PT OWN MED DRAWER 7, Y5N ONE (08:18)
[2019-11-10] MEDS: LIDOCAINE 5% TOPICAL PATCH TP SCH (09:30)
[2019-11-10] MEDS: BENZOYL PEROXIDE 5% 60 GM GEL..GRAM. TP SCH (09:31)
[2019-11-10] MEDS: PRENATAL VITAMINS W/ FOLIC ACID TABLET (FP) PO SCH (09:31)
[2019-11-10] MEDS: BUPRENORPHINE/NALOXONE 8 MG/2 MG FILM PACKET SL SCH (09:33)
[2019-11-10] MEDS: METHYL SALICYLATE/MENTHOL OINT 30 GM TUBE TP SCH ×2 (09:36→21:22)
[2019-11-10] MEDS: CLOTRIMAZOLE 1% CREAM 15 GM TUBE TP SCH ×2 (09:36→21:22)
[2019-11-10] MEDS: NICOTINE 14 MG/24 HOURS TOPICAL PATCH TD SCH (09:36)
[2019-11-10] MEDS: NICOTINE POLACRILEX 2 MG GUM BC PRN (09:36)
[2019-11-10] MEDS: THIAMINE HCL 100 MG TABLET (FP) PO SCH (21:20)
[2019-11-10] MEDS: MELATONIN 5 MG TABLETS PO PRN (21:20)
[2019-11-10] MEDS: LIDOCAINE PATCH REMOVAL MC SCH (21:22)
[2019-11-11] MEDS: METHOCARBAMOL 500 MG TABLET PO PRN ×2 (02:25→19:00)
[2019-11-11] MEDS: IBUPROFEN 400 MG TABLET (FP) PO PRN ×2 (02:25→21:17)
[2019-11-11] MEDS: GABAPENTIN 300 MG CAPSULE PO SCH ×3 (08:12→21:15)
[2019-11-11] MEDS: METHYL SALICYLATE/MENTHOL OINT 30 GM TUBE TP SCH ×2 (09:58→21:14)
[2019-11-11] MEDS: PRENATAL VITAMINS W/ FOLIC ACID TABLET (FP) PO SCH (09:58)
[2019-11-11] MEDS: LIDOCAINE 5% TOPICAL PATCH TP SCH (09:58)
[2019-11-11] MEDS: BUPRENORPHINE/NALOXONE 8 MG/2 MG FILM PACKET SL SCH (09:58)
[2019-11-11] MEDS: CLOTRIMAZOLE 1% CREAM 15 GM TUBE TP SCH ×2 (09:59→21:14)
[2019-11-11] MEDS: BENZOYL PEROXIDE 5% 60 GM GEL..GRAM. TP SCH (09:59)
[2019-11-11] MEDS: NICOTINE 14 MG/24 HOURS TOPICAL PATCH TD SCH (09:59)
[2019-11-11] MEDS: COLLOIDAL OATMEAL 1 BAR EACH TP PRN (17:41)
[2019-11-11] MEDS: hydrOXYzine PAMOATE 25 MG CAPSULE (FP) PO PRN (19:00)
[2019-11-11] MEDS ORDERED: PT OWN MED DRAWER 7, Y5N ONE (19:18)
[2019-11-11] MEDS: LIDOCAINE PATCH REMOVAL MC SCH (21:14)
[2019-11-11] MEDS: THIAMINE HCL 100 MG TABLET (FP) PO SCH (21:15)
[2019-11-11] MEDS: SUVOREXANT 20 MG TABLET PO PRN (21:15)
[2019-11-11] MEDS: MELATONIN 5 MG TABLETS PO PRN (21:15)
[2019-11-12] MEDS: GABAPENTIN 300 MG CAPSULE PO SCH ×3 (06:44→21:12)
[2019-11-12] MEDS ORDERED: PT OWN MED DRAWER 7, Y5N ONE (08:05)
[2019-11-12] MEDS: METHYL SALICYLATE/MENTHOL OINT 30 GM TUBE TP SCH ×2 (09:47→21:13)
[2019-11-12] MEDS: BENZOYL PEROXIDE 5% 60 GM GEL..GRAM. TP SCH (09:48)
[2019-11-12] MEDS: LIDOCAINE 5% TOPICAL PATCH TP SCH (09:48)
[2019-11-12] MEDS: PRENATAL VITAMINS W/ FOLIC ACID TABLET (FP) PO SCH (09:49)
[2019-11-12] MEDS: CLOTRIMAZOLE 1% CREAM 15 GM TUBE TP SCH ×2 (09:49→21:14)
[2019-11-12] MEDS: BUPRENORPHINE/NALOXONE 8 MG/2 MG FILM PACKET SL SCH (09:49)
[2019-11-12] MEDS: NICOTINE 14 MG/24 HOURS TOPICAL PATCH TD SCH (09:49)
[2019-11-12] MEDS: METHOCARBAMOL 500 MG TABLET PO PRN ×2 (09:50→21:12)
[2019-11-12] MEDS: SUVOREXANT 20 MG TABLET PO PRN (21:11)
[2019-11-12] MEDS: THIAMINE HCL 100 MG TABLET (FP) PO SCH (21:12)
[2019-11-12] MEDS: hydrOXYzine PAMOATE 25 MG CAPSULE (FP) PO PRN (21:13)
[2019-11-12] MEDS: LIDOCAINE PATCH REMOVAL MC SCH (21:14)
[2019-11-13] MEDS: IBUPROFEN 400 MG TABLET (FP) PO PRN (03:17)
[2019-11-13] MEDS: hydrOXYzine PAMOATE 25 MG CAPSULE (FP) PO PRN (03:17)
[2019-11-13] MEDS: GABAPENTIN 300 MG CAPSULE PO SCH (06:42)
[2019-11-13 06:59] VITALS: BP 106/71; PULSE 68; TEMP 97.5
[2019-11-13] MEDS: PRENATAL VITAMINS W/ FOLIC ACID TABLET (FP) PO SCH (09:12)
[2019-11-13] MEDS: NICOTINE 14 MG/24 HOURS TOPICAL PATCH TD SCH (09:13)
[2019-11-13] MEDS: METHYL SALICYLATE/MENTHOL OINT 30 GM TUBE TP SCH (09:13)
[2019-11-13] MEDS: BENZOYL PEROXIDE 5% 60 GM GEL..GRAM. TP SCH (09:13)
[2019-11-13] MEDS: LIDOCAINE 5% TOPICAL PATCH TP SCH (09:13)
[2019-11-13] MEDS: CLOTRIMAZOLE 1% CREAM 15 GM TUBE TP SCH (09:13)
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
[2019-11-13] MEDS ORDERED: BUPRENORPHINE/NALOXONE 8 MG/2 MG FILM PACKET SL ONE (09:46)
== END 2019-11-13 09:50 | disposition home or self-care (01) | DRG 772 ==
LOC: YASAS 13:00 → Y3E 13:01
PROVIDERS: ADMIT Neuromusculoskeletal Medicine & OMM; ATTEND Neuromusculoskeletal Medicine & OMM
PROC: HZ42ZZZ Group Counseling for Substance Abuse Treatment, Cognitive-Behavioral (ICD-10-PCS; principal; 2019-10-23)
DX: F11.20 Opioid dependence, uncomplicated (principal); F10.20 Alcohol dependence, uncomplicated; F14.20 Cocaine dependence, uncomplicated; F17.213 Nicotine dependence, cigarettes, with withdrawal; F19.24 Other psychoactive substance dependence with psychoactive substance-induced mood disorder; F19.282 Other psychoactive substance dependence with psychoactive substance-induced sleep disorder; F39 Unspecified mood [affective] disorder; F43.10 Post-traumatic stress disorder, unspecified; J45.22 Mild intermittent asthma with status asthmaticus; B18.2 Chronic viral hepatitis C; M06.9 Rheumatoid arthritis, unspecified; D64.9 Anemia, unspecified; M54.5 Low back pain; G89.29 Other chronic pain; Z96.653 Presence of artificial knee joint, bilateral; Z62.810 Personal history of physical and sexual abuse in childhood
CPT/HCPCS: G0008; Q2036

== ENCOUNTER 2020-04-03 12:26 | Inpatient (IN) | payer OTHER ==
[2020-04-03] MEDS ORDERED: BUPRENORPHINE/NALOXONE 8 MG/2 MG FILM PACKET SL ONE ×2 (13:45→15:00)
[2020-04-03] MEDS ORDERED: METOCLOPRAMIDE HCL 10 MG TABLET (FP) PO ONE (13:45)
[2020-04-03] MEDS ORDERED: BUPRENORPHINE/NALOXONE 8 MG/2 MG FILM PACKET SL SCH (14:00)
[2020-04-03] MEDS ORDERED: ACETAMINOPHEN 325 MG TABLET (FP) PO PRN (14:02)
[2020-04-03] MEDS ORDERED: MENTHOL/PHENOL 1 EACH UD MM PRN (14:02)
[2020-04-03] MEDS ORDERED: LOPERAMIDE HCL 2 MG CAPSULE PO PRN (14:02)
[2020-04-03] MEDS ORDERED: MAGNESIUM HYDROX 2400MG/30ML ORAL SUSPENSION 30 ML CUP PO PRN (14:02)
[2020-04-03] MEDS ORDERED: NICOTINE POLACRILEX 2 MG GUM BUC PRN (14:02)
[2020-04-03] MEDS ORDERED: P-EPHED 60MG/TRIPROLIDI 2.5MG TABLET PO PRN (14:02)
[2020-04-03] MEDS ORDERED: MAGNESIUM CITRATE 300 ML BOTTLE PO PRN (14:02)
[2020-04-03] MEDS ORDERED: MAG HYDROX/AL HYDROX/SIMETH 30 ML UNIT-DOSE CUP PO PRN (14:02)
[2020-04-03] MEDS ORDERED: guaiFENesin 200 MG/10 ML 10 ML UNIT-DOSE CUPS PO PRN (14:02)
[2020-04-03] MEDS: MELATONIN 5 MG TABLETS PO SCH (21:30)
[2020-04-03] MEDS: THIAMINE HCL 100 MG TABLET (FP) PO SCH (21:30)
[2020-04-03] MEDS: BUPRENORPHINE/NALOXONE 8 MG/2 MG FILM PACKET SL SCH (21:31)
[2020-04-04] MEDS: BUPRENORPHINE/NALOXONE 8 MG/2 MG FILM PACKET SL SCH ×3 (06:10→21:22)
[2020-04-04] MEDS: PRENATAL VITAMINS W/ FOLIC ACID TABLET (FP) PO SCH (10:26)
[2020-04-04] MEDS: NICOTINE 7 MG/24 HOURS TOPICAL PATCH TD SCH (10:26)
[2020-04-04] MEDS ORDERED: ALBUTEROL SO4 HFA INHALER IH PRN (11:19)
[2020-04-04] MEDS: THIAMINE HCL 100 MG TABLET (FP) PO SCH (21:21)
[2020-04-04] MEDS: MELATONIN 5 MG TABLETS PO SCH (21:21)
[2020-04-05] MEDS: BUPRENORPHINE/NALOXONE 8 MG/2 MG FILM PACKET SL SCH ×3 (07:08→21:34)
[2020-04-05] MEDS: PRENATAL VITAMINS W/ FOLIC ACID TABLET (FP) PO SCH (10:26)
[2020-04-05] MEDS: NICOTINE 7 MG/24 HOURS TOPICAL PATCH TD SCH (10:56)
--- NOTE | 2020-04-05 15:19 | HP ---
[facility] Rehab Assess/Revision - Admission History Admitted to Rehab from: [facility] Date of Admission to Rehab: 04/04/20 - Vital signs Vital Signs: Vital Signs Period Temp Pulse Resp BP Sys/Vidal Pulse Ox Last 24 Hr 98.0 F 60 18 112/72 98-98 - Findings Detox History & Physical reviewed: Yes Concur with findings: Yes Comments/Additional Findings: PMHx:Asthma,Anemia, Neuropathy,Hep C, Arthritis,knees. SHx:Bilateral Knee replacement(reports takes Neurontin 300 mg po Q8H and has own at home. States has a PCP who prescribes it for her in her program) Inpatient Rehab Admission - Rehab Decision to Admit Inpatient rehab admission?: Yes - Initial Determination Are CD services needed?: Yes Free of communicable disease: Yes Not in need of hospitalization: Yes - Rehab Admission Criteria Previous failed treatment: Yes Poor recovery environment: Yes Comorbidities: Yes Lacks judgement: Yes Patient is meeting Inpatient Rehab admission criteria:: Yes
[2020-04-05] MEDS: GABAPENTIN 300 MG CAPSULE PO SCH ×2 (16:05→21:33)
[2020-04-05] MEDS: THIAMINE HCL 100 MG TABLET (FP) PO SCH (21:33)
[2020-04-05] MEDS: MELATONIN 5 MG TABLETS PO SCH (21:33)
[2020-04-06] MEDS: GABAPENTIN 300 MG CAPSULE PO SCH ×3 (06:11→22:06)
[2020-04-06] MEDS: BUPRENORPHINE/NALOXONE 8 MG/2 MG FILM PACKET SL SCH ×3 (06:12→22:50)
[2020-04-06] MEDS: PRENATAL VITAMINS W/ FOLIC ACID TABLET (FP) PO SCH (10:51)
[2020-04-06] MEDS: NICOTINE 7 MG/24 HOURS TOPICAL PATCH TD SCH (10:51)
[2020-04-06] MEDS: hydrOXYzine PAMOATE 25 MG CAPSULE (FP) PO PRN (14:33)
[2020-04-06] MEDS: MELATONIN 5 MG TABLETS PO SCH (22:06)
[2020-04-06] MEDS: THIAMINE HCL 100 MG TABLET (FP) PO SCH (22:06)
[2020-04-07] MEDS: BUPRENORPHINE/NALOXONE 8 MG/2 MG FILM PACKET SL SCH ×3 (06:21→21:20)
[2020-04-07] MEDS: GABAPENTIN 300 MG CAPSULE PO SCH ×3 (06:21→21:20)
[2020-04-07] MEDS: PRENATAL VITAMINS W/ FOLIC ACID TABLET (FP) PO SCH (10:23)
[2020-04-07] MEDS: NICOTINE 7 MG/24 HOURS TOPICAL PATCH TD SCH (10:23)
[2020-04-07] MEDS: THIAMINE HCL 100 MG TABLET (FP) PO SCH (21:20)
[2020-04-07] MEDS: MELATONIN 5 MG TABLETS PO SCH (21:20)
[2020-04-08] MEDS: GABAPENTIN 300 MG CAPSULE PO SCH ×3 (06:35→21:24)
[2020-04-08] MEDS: BUPRENORPHINE/NALOXONE 8 MG/2 MG FILM PACKET SL SCH ×3 (06:36→21:25)
[2020-04-08] MEDS: NICOTINE 7 MG/24 HOURS TOPICAL PATCH TD SCH (10:21)
[2020-04-08] MEDS: PRENATAL VITAMINS W/ FOLIC ACID TABLET (FP) PO SCH (10:21)
[2020-04-08] MEDS ORDERED: COLLOIDAL OATMEAL 1 BAR EACH TP PRN (10:25)
[2020-04-08] MEDS: MELATONIN 5 MG TABLETS PO SCH (21:24)
[2020-04-08] MEDS: THIAMINE HCL 100 MG TABLET (FP) PO SCH (21:24)
[2020-04-09] MEDS: hydrOXYzine PAMOATE 25 MG CAPSULE (FP) PO PRN (00:59)
[2020-04-09] MEDS: BUPRENORPHINE/NALOXONE 8 MG/2 MG FILM PACKET SL SCH ×3 (06:20→21:30)
[2020-04-09] MEDS: GABAPENTIN 300 MG CAPSULE PO SCH ×3 (06:20→21:29)
--- NOTE | 2020-04-09 09:47 | PN ---
[facility] Progress Note Note: patient reporting anxiety and requesting to see psychiatric service. Consult placed and vistaril increased to 50mg PRN. Will continue to monitor. Vital Signs Period Temp Pulse Resp BP Sys/Vidal Pulse Ox Last 24 Hr 98.4 F-98.6 F 67 18-18 112/76 96-98
[2020-04-09] MEDS: PRENATAL VITAMINS W/ FOLIC ACID TABLET (FP) PO SCH (10:20)
[2020-04-09] MEDS: hydrOXYzine PAMOATE 50 MG CAPSULE (FP) PO PRN ×3 (10:21→18:58)
[2020-04-09] MEDS: NICOTINE 7 MG/24 HOURS TOPICAL PATCH TD SCH (10:22)
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
[2020-04-09] MEDS: IBUPROFEN 400 MG TABLET (FP) PO PRN (18:59)
[2020-04-09] MEDS: MELATONIN 5 MG TABLETS PO SCH (21:29)
[2020-04-09] MEDS: THIAMINE HCL 100 MG TABLET (FP) PO SCH (21:29)
[2020-04-09] MEDS: SUVOREXANT 10 MG TABLET PO PRN (21:30)
[2020-04-10] MEDS: GABAPENTIN 300 MG CAPSULE PO SCH ×3 (06:13→21:48)
[2020-04-10] MEDS: BUPRENORPHINE/NALOXONE 8 MG/2 MG FILM PACKET SL SCH ×3 (06:13→21:50)
[2020-04-10] MEDS: hydrOXYzine PAMOATE 50 MG CAPSULE (FP) PO PRN ×4 (06:14→21:49)
[2020-04-10] MEDS: PRENATAL VITAMINS W/ FOLIC ACID TABLET (FP) PO SCH (10:10)
[2020-04-10] MEDS: NICOTINE 7 MG/24 HOURS TOPICAL PATCH TD SCH (10:11)
[2020-04-10] MEDS: METHOCARBAMOL 500 MG TABLET PO SCH ×3 (13:58→21:48)
[2020-04-10] MEDS: LIDOCAINE 5% TOPICAL PATCH TP SCH (13:59)
[2020-04-10] MEDS: IBUPROFEN 400 MG TABLET (FP) PO PRN (14:00)
[2020-04-10] MEDS: THIAMINE HCL 100 MG TABLET (FP) PO SCH (21:48)
[2020-04-10] MEDS: LIDOCAINE PATCH REMOVAL MC SCH (21:48)
[2020-04-10] MEDS: MELATONIN 5 MG TABLETS PO SCH (21:48)
[2020-04-10] MEDS: SUVOREXANT 10 MG TABLET PO PRN (21:49)
[2020-04-11] MEDS: BUPRENORPHINE/NALOXONE 8 MG/2 MG FILM PACKET SL SCH ×3 (06:18→21:24)
[2020-04-11] MEDS: hydrOXYzine PAMOATE 50 MG CAPSULE (FP) PO PRN ×4 (06:18→18:14)
[2020-04-11] MEDS: GABAPENTIN 300 MG CAPSULE PO SCH ×3 (06:18→21:23)
[2020-04-11] MEDS: PRENATAL VITAMINS W/ FOLIC ACID TABLET (FP) PO SCH (10:24)
[2020-04-11] MEDS: LIDOCAINE 5% TOPICAL PATCH TP SCH (10:24)
[2020-04-11] MEDS: METHOCARBAMOL 500 MG TABLET PO SCH ×4 (10:24→21:23)
[2020-04-11] MEDS: NICOTINE 7 MG/24 HOURS TOPICAL PATCH TD SCH (10:28)
[2020-04-11] MEDS: IBUPROFEN 400 MG TABLET (FP) PO PRN ×2 (13:47→21:23)
[2020-04-11] MEDS: MELATONIN 5 MG TABLETS PO SCH (21:22)
[2020-04-11] MEDS: LIDOCAINE PATCH REMOVAL MC SCH (21:22)
[2020-04-11] MEDS: THIAMINE HCL 100 MG TABLET (FP) PO SCH (21:24)
[2020-04-11] MEDS: SUVOREXANT 10 MG TABLET PO PRN (21:25)
[2020-04-12] MEDS: IBUPROFEN 400 MG TABLET (FP) PO PRN (06:18)
[2020-04-12] MEDS: BUPRENORPHINE/NALOXONE 8 MG/2 MG FILM PACKET SL SCH ×3 (06:19→21:51)
[2020-04-12] MEDS: GABAPENTIN 300 MG CAPSULE PO SCH ×3 (06:19→21:49)
[2020-04-12] MEDS: hydrOXYzine PAMOATE 50 MG CAPSULE (FP) PO PRN ×3 (06:21→14:04)
[2020-04-12] MEDS: PRENATAL VITAMINS W/ FOLIC ACID TABLET (FP) PO SCH (10:23)
[2020-04-12] MEDS: METHOCARBAMOL 500 MG TABLET PO SCH ×4 (10:23→21:50)
[2020-04-12] MEDS: NICOTINE 7 MG/24 HOURS TOPICAL PATCH TD SCH (10:23)
[2020-04-12] MEDS: LIDOCAINE 5% TOPICAL PATCH TP SCH ×2 (10:23→10:41)
--- NOTE | 2020-04-12 10:50 | PN ---
S Progress Note Note: Patient c/o discomfort to right shoulder and right knee due to hx of arthritis. She denies any recent injuries and/or falls. Discomfort described as dull ache, 4/10. Non-radiating. Vital Signs Temperature 97.9 F 04/12/20 07:57 Pulse Rate 79 04/12/20 07:57 Respiratory Rate 18 04/12/20 07:57 Blood Pressure 120/67 04/12/20 07:57 O2 Sat by Pulse Oximetry (%) 97 04/12/20 07:57 PE alert and oriented x 3 skin warm and dry right shoulder without redness, swelling. +ROM elicits discomfort right knee with +2 swelling, no redness. Amb independently. + ROM elicits discomfort A/P: Right shoulder/knee discomfort H/O OA Lidocaine 5% patch ordered to right shoulder and right knee continue ibuprofen prn monitor clinically
[2020-04-12] MEDS: MELATONIN 5 MG TABLETS PO SCH (21:49)
[2020-04-12] MEDS: THIAMINE HCL 100 MG TABLET (FP) PO SCH (21:49)
[2020-04-12] MEDS: SUVOREXANT 10 MG TABLET PO PRN (21:50)
[2020-04-12] MEDS: LIDOCAINE PATCH REMOVAL MC SCH ×2 (21:50)
[2020-04-12] MEDS ORDERED: SUVOREXANT 10 MG TABLET PO PRN (22:00)
[2020-04-13] MEDS: GABAPENTIN 300 MG CAPSULE PO SCH ×3 (06:09→21:30)
[2020-04-13] MEDS: BUPRENORPHINE/NALOXONE 8 MG/2 MG FILM PACKET SL SCH ×3 (06:09→21:32)
[2020-04-13 10:00] LABS: ALBUMIN 3.7 g/dl (3.4-5.0); BLOOD UREA NITROGEN 23.8 mg/dL (7-18); CALCIUM 9.2 mg/dL (8.5-10.1); CREATININE 0.9 mg/dL (0.55-1.3)
[2020-04-13 10:02] LABS: BILIRUBIN,TOTAL 0.3 mg/dL (0.2-1)
[2020-04-13] MEDS: LIDOCAINE 5% TOPICAL PATCH TP SCH ×2 (10:15)
[2020-04-13] MEDS: NICOTINE 7 MG/24 HOURS TOPICAL PATCH TD SCH (10:16)
[2020-04-13] MEDS: PRENATAL VITAMINS W/ FOLIC ACID TABLET (FP) PO SCH (10:16)
[2020-04-13] MEDS: METHOCARBAMOL 500 MG TABLET PO SCH ×4 (10:16→21:30)
[2020-04-13] MEDS: hydrOXYzine PAMOATE 50 MG CAPSULE (FP) PO PRN (10:17)
[2020-04-13] MEDS: IBUPROFEN 400 MG TABLET (FP) PO PRN (10:17)
[2020-04-13] MEDS ORDERED: POTASSIUM CHLORIDE TABS 20 MEQ TABLET.ER (FP) PO ONE ×2 (10:46→12:30)
--- NOTE | 2020-04-13 10:50 | PN ---
[facility] Progress Note Note: Lab Review Abnormal Lab Results 04/13/20 07:25 Potassium 3.0 L Chloride 88 L Carbon Dioxide 42 H BUN 23.8 H AST 103 H Alkaline Phosphatase 158 H Potassium 40meq x 1 now, then 20meq PO QD BMP on 04/15
--- NOTE | 2020-04-13 12:26 | PN ---
Psychiatric Progress Note Vital Signs: Vital Signs Period Temp Pulse Resp BP Sys/Vidal Pulse Ox Last 24 Hr 96.9 F-98.4 F 75 18 100/59 96-97 Date of Session: 04/13/20 Chief Complaint:: [facility] HPI: Patient admitted to [facility] for treatment of alcohol, opioid, cocaine and benzodiazepine dependence. ROS: Patient is ambulatory, alert +oriented X3. Current Medications: Active Medications Generic Name Dose Route Start Last Admin Trade Name Freq PRN Reason Stop Dose Admin Acetaminophen 650 mg 04/03/20 14:02 Tylenol - PO Q4H PRN FEVER Al Hydroxide/Mg Hydroxide 30 ml 04/03/20 14:02 Mylanta Oral Suspension - PO Q6H PRN DYSPEPSIA Albuterol Sulfate 2 puff 04/04/20 11:19 Ventolin Hfa Inhaler - IH Q4H PRN SHORT OF BREATH/WHEEZING Buprenorphine/Naloxone 1 each 04/09/20 14:00 04/13/20 06:09 Suboxone 8 Mg/2 Mg Film Packet SL 04/16/20 13:59 1 each TID@0600,1400,2200 RAMBO Administration Colloidal Oatmeal 1 applic 04/08/20 10:25 04/08/20 13:54 Aveeno Soap - TP 1 bar DAILY PRN Administration HYGEINE Eucalyptus/Menthol/Phenol/Sorbitol 1 each 04/03/20 14:02 Cepastat Lozenge - MM Q4H PRN SORE THROAT Gabapentin 300 mg 04/05/20 15:30 04/13/20 06:09 Neurontin - PO 300 mg TID RAMBO Administration Guaifenesin 10 ml 04/03/20 14:02 Robitussin - PO Q6H PRN COUGH Hydroxyzine Pamoate 50 mg 04/09/20 09:46 04/13/20 10:17 Vistaril - PO 50 mg Q4HWA PRN Administration ANXIETY Ibuprofen 400 mg 04/03/20 14:02 04/13/20 10:17 Motrin - PO 400 mg Q6H PRN Administration Pain Level 4-6 Lidocaine 1 patch 04/10/20 13:30 04/13/20 10:15 Lidoderm Patch - TP 1 patch DAILY RAMBO Administration Lidocaine 1 patch 04/12/20 10:30 04/13/20 10:15 Lidoderm Patch - TP 1 patch DAILY RAMBO Administration Loperamide HCl 4 mg 04/03/20 14:02 Imodium - PO Q6H PRN DIARRHEA Magnesium Citrate 300 ml 04/03/20 14:02 Citroma - PO Q48H PRN CONSTIPATION Magnesium Hydroxide 30 ml 04/03/20 14:02 Milk Of Magnesia - PO DAILY PRN CONSTIPATION Melatonin 5 mg 04/03/20 22:00 04/12/20 21:49 Melatonin PO 5 mg HS RAMBO Administration Methocarbamol 500 mg 04/10/20 14:00 04/13/20 10:16 Robaxin - PO 500 mg QID RAMBO Administration Miscellaneous 1 each 04/10/20 22:00 04/12/20 21:50 Lidoderm Patch Removal MC 1 each DAILY@0 RAMBO Administration Miscellaneous 1 each 04/12/20 22:00 04/12/20 21:50 Lidoderm Patch Removal MC 1 each DAILY@2200 RAMBO Administration Nicotine 7 mg 04/04/20 10:00 04/13/20 10:16 Nicoderm Patch - TD Not Given DAILY RAMBO Nicotine Polacrilex 2 mg 04/03/20 14:02 04/09/20 06:20 Nicorette Gum - BUC 2 mg Q2H PRN Administration NICOTINE REPLACEMENT RX Potassium Chloride 20 meq 04/14/20 10:00 K-Dur - PO DAILY RAMBO Potassium Chloride 40 meq 04/13/20 12:30 04/13/20 12:18 K-Dur - PO 04/13/20 12:31 40 meq ONCE ONE Administration Multivit/Folic Acid/Iron 1 tab 04/04/20 10:00 04/13/20 10:16 Vitamins (Sjr) - PO 1 tab DAILY RAMBO Administration Pseudoephedrine/Triprolidine 1 combo 04/03/20 14:02 Actifed - PO TID PRN NASAL CONGESTION Suvorexant 10 mg 04/12/20 22:00 Belsomra PO 04/15/20 21:59 HS PRN INSOMNIA Thiamine HCl 100 mg 04/03/20 22:00 04/12/20 21:49 Vitamin B1 - PO 100 mg HS RAMBO Administration Medication(s) Change(s): Yes. Will d/c belsomra 10mg. Will order Belsomra 20mg HS. Current Side Effect: No Lab tests ordered: No Lab tests reviewed: Yes Provider note:: Patient reports difficulty sleeping despite accepting belsomra 10mg HS. Ms. Abdi reports favorable effects from accepting belsomra 20mg HS which she has taken during previous admission at rehab. Will d/c Belsomra 10mg and will order Belsomra 20mg HS. Patient also educated on the importance of proper sleep hygiene. Benefits and side effects discussed. Verbal consent given. Total face to face time:: 20 Mental Status Exam - Mental Status Exam Alert and Oriented to: Time, Place, Person Cognitive Function: Good Patient Appearance: Well Groomed Mood: Hopeful Affect: Appropriate Patient Behavior: Appropriate, Cooperative Speech Pattern: Appropriate Voice Loudness: Normal Thought Process: Intact, Goal Oriented Thought Disorder: Not Present Hallucinations: Denies Suicidal Ideation: Denies Homicidal Ideation: Denies Insight/Judgement: Poor Sleep: Poorly Appetite: Fair Muscle strength/Tone: Normal Gait/Station: Normal Psychiatric Treatment Plan - Problem List (1) Substance-induced anxiety disorder Current Visit: Yes (2) Mood disorder Current Visit: Yes (3) Alcohol dependence Current Visit: Yes Qualifiers: Substance use status: uncomplicated Qualified Code(s): F10.20 - Alcohol dependence, uncomplicated (4) Cocaine dependence Current Visit: Yes Qualifiers: Substance use status: uncomplicated Qualified Code(s): F14.20 - Cocaine dependence, uncomplicated (5) Sedative dependence Current Visit: Yes (6) Substance-induced sleep disorder Current Visit: Yes (7) Cocaine dependence Current Visit: Yes Qualifiers: Substance use status: uncomplicated Qualified Code(s): F14.20 - Cocaine dependence, uncomplicated
[2020-04-13] MEDS: LIDOCAINE PATCH REMOVAL MC SCH ×2 (21:30)
[2020-04-13] MEDS: MELATONIN 5 MG TABLETS PO SCH (21:30)
[2020-04-13] MEDS: THIAMINE HCL 100 MG TABLET (FP) PO SCH (21:30)
[2020-04-13] MEDS: SUVOREXANT 10 MG TABLET PO PRN (21:31)
[2020-04-14] MEDS: GABAPENTIN 300 MG CAPSULE PO SCH ×3 (06:31→21:49)
[2020-04-14] MEDS: BUPRENORPHINE/NALOXONE 8 MG/2 MG FILM PACKET SL SCH ×3 (06:31→21:50)
[2020-04-14] MEDS: hydrOXYzine PAMOATE 50 MG CAPSULE (FP) PO PRN ×2 (06:32→21:50)
[2020-04-14] MEDS: IBUPROFEN 400 MG TABLET (FP) PO PRN (06:32)
[2020-04-14] MEDS: PRENATAL VITAMINS W/ FOLIC ACID TABLET (FP) PO SCH (10:19)
[2020-04-14] MEDS: NICOTINE 7 MG/24 HOURS TOPICAL PATCH TD SCH (10:19)
[2020-04-14] MEDS: POTASSIUM CHLORIDE TABS 20 MEQ TABLET.ER (FP) PO SCH (10:19)
[2020-04-14] MEDS: METHOCARBAMOL 500 MG TABLET PO SCH ×4 (10:19→21:49)
[2020-04-14] MEDS: LIDOCAINE 5% TOPICAL PATCH TP SCH ×2 (10:20)
[2020-04-14] MEDS: THIAMINE HCL 100 MG TABLET (FP) PO SCH (21:49)
[2020-04-14] MEDS: MELATONIN 5 MG TABLETS PO SCH (21:49)
[2020-04-14] MEDS: SUVOREXANT 10 MG TABLET PO PRN (21:49)
[2020-04-14] MEDS: LIDOCAINE PATCH REMOVAL MC SCH ×2 (21:49)
[2020-04-15] MEDS: GABAPENTIN 300 MG CAPSULE PO SCH ×3 (06:17→21:46)
[2020-04-15] MEDS: IBUPROFEN 400 MG TABLET (FP) PO PRN ×2 (06:17→21:46)
[2020-04-15] MEDS: BUPRENORPHINE/NALOXONE 8 MG/2 MG FILM PACKET SL SCH ×3 (06:18→21:49)
[2020-04-15] MEDS: LIDOCAINE 5% TOPICAL PATCH TP SCH ×2 (11:47→11:48)
[2020-04-15] MEDS: METHOCARBAMOL 500 MG TABLET PO SCH ×4 (11:47→21:45)
[2020-04-15] MEDS: POTASSIUM CHLORIDE TABS 20 MEQ TABLET.ER (FP) PO SCH (11:47)
[2020-04-15] MEDS: PRENATAL VITAMINS W/ FOLIC ACID TABLET (FP) PO SCH (11:47)
[2020-04-15] MEDS: NICOTINE 7 MG/24 HOURS TOPICAL PATCH TD SCH (11:49)
[2020-04-15] MEDS: hydrOXYzine PAMOATE 50 MG CAPSULE (FP) PO PRN ×4 (11:51→21:46)
[2020-04-15 14:18] LABS: BLOOD UREA NITROGEN 26.3 mg/dL (7-18); CREATININE 0.9 mg/dL (0.55-1.3)
[2020-04-15 14:29] LABS: POTASSIUM 2.9 mmol/L (3.5-5.1)
[2020-04-15] MEDS ORDERED: POTASSIUM CHLORIDE ORAL LIQUID 20 MEQ/15 ML PO ONE (14:35)
--- NOTE | 2020-04-15 14:43 | PN ---
[facility] Progress Note Note: Vital Signs Temperature 98 F 04/15/20 07:05 Pulse Rate 79 04/15/20 07:05 Respiratory Rate 18 04/15/20 07:05 Blood Pressure 125/67 04/15/20 07:05 O2 Sat by Pulse Oximetry (%) 95 04/15/20 14:27 Laboratory Tests 04/13/20 04/15/20 07:25 08:40 Sodium 138 138 Potassium 3.0 L 2.9 L* Chloride 88 L 87 L Carbon Dioxide 42 H 43 H Anion Gap 8 7 L BUN 23.8 H 26.3 H Creatinine 0.9 0.9 Est GFR (CKD-EPI)AfAm 92.05 92.05 Est GFR (CKD-EPI)NonAf 79.42 79.42 Random Glucose 90 78 Calcium 9.2 9.0 Total Bilirubin 0.3 AST 103 H ALT 46 Alkaline Phosphatase 158 H Total Protein 8.0 Albumin 3.7 Labs appreciated. Patient noted ambulating on unit. Conversing with peers/staff. In no acute distress. Denies medical complaints. Hypokalemia Will order KCL 40meq po stat, then bid x 2 days Repeat level in am
[2020-04-15] MEDS ORDERED: POTASSIUM CHLORIDE TABS 20 MEQ TABLET.ER (FP) PO ONE (18:33)
[2020-04-15] MEDS: MELATONIN 5 MG TABLETS PO SCH (21:45)
[2020-04-15] MEDS: LIDOCAINE PATCH REMOVAL MC SCH ×2 (21:45)
[2020-04-15] MEDS: THIAMINE HCL 100 MG TABLET (FP) PO SCH (21:47)
[2020-04-15] MEDS: SUVOREXANT 10 MG TABLET PO PRN (21:50)
[2020-04-15] MEDS ORDERED: POTASSIUM CHLORIDE ORAL LIQUID 20 MEQ/15 ML PO SCH (22:00)
[2020-04-16] MEDS: GABAPENTIN 300 MG CAPSULE PO SCH ×3 (06:38→21:34)
[2020-04-16] MEDS: BUPRENORPHINE/NALOXONE 8 MG/2 MG FILM PACKET SL SCH ×3 (06:39→21:36)
[2020-04-16] MEDS: hydrOXYzine PAMOATE 50 MG CAPSULE (FP) PO PRN ×2 (06:41→14:21)
[2020-04-16] MEDS: IBUPROFEN 400 MG TABLET (FP) PO PRN ×2 (06:41→14:21)
[2020-04-16] MEDS ORDERED: POTASSIUM CHLORIDE ORAL LIQUID 20 MEQ/15 ML PO SCH (10:00)
[2020-04-16] MEDS: NICOTINE 7 MG/24 HOURS TOPICAL PATCH TD SCH (10:14)
[2020-04-16] MEDS: LIDOCAINE 5% TOPICAL PATCH TP SCH ×2 (10:14→10:15)
[2020-04-16] MEDS: PRENATAL VITAMINS W/ FOLIC ACID TABLET (FP) PO SCH (10:14)
[2020-04-16] MEDS: METHOCARBAMOL 500 MG TABLET PO SCH ×4 (10:16→21:34)
[2020-04-16] MEDS ORDERED: POTASSIUM CHLORIDE TABS 20 MEQ TABLET.ER (FP) PO ONE (16:05)
--- NOTE | 2020-04-16 16:16 | PN ---
S Progress Note (SOAP) Subjective: Potassium level is 2.9; she was started on potassium when her level was 3.0. Patient states she does not like the liquid potassium, that it upsets her stomach. Patient also endorses that she is bulimic. She reports that because of the bulimia, she has acid reflux, especially at night and that she "throws up in her sleep." Pt also states that she always has low potassium Objective: Laboratory Last Values Sodium 138 mmol/L (136-145) 04/15/20 08:40 Potassium 2.9 mmol/L (3.5-5.1) L* 04/16/20 08:15 Chloride 87 mmol/L (98-107) L 04/15/20 08:40 Carbon Dioxide 43 mmol/L (21-32) H 04/15/20 08:40 Anion Gap 7 MMOL/L (8-16) L 04/15/20 08:40 BUN 26.3 mg/dL (7-18) H 04/15/20 08:40 Creatinine 0.9 mg/dL (0.55-1.3) 04/15/20 08:40 Est GFR (CKD-EPI)AfAm 92.05 04/15/20 08:40 Est GFR (CKD-EPI)NonAf 79.42 04/15/20 08:40 Random Glucose 78 mg/dL (74-106) 04/15/20 08:40 Calcium 9.0 mg/dL (8.5-10.1) 04/15/20 08:40 Total Bilirubin 0.3 mg/dL (0.2-1) 04/13/20 07:25 AST 103 U/L (15-37) H 04/13/20 07:25 ALT 46 U/L (13-61) 04/13/20 07:25 Alkaline Phosphatase 158 U/L (45-117) H 04/13/20 07:25 Total Protein 8.0 g/dl (6.4-8.2) 04/13/20 07:25 Albumin 3.7 g/dl (3.4-5.0) 04/13/20 07:25 Vital Signs Period Temp Pulse Resp BP Sys/Vidal Pulse Ox Last 24 Hr 97.6 F-98 F 69 18-18 115/66 95-98 04/16/20 16:12 P/E; General: no apparent distress, tearful HEENMT: throat clear, normocephalic Neck: supple Resp: unlabored ABD: +BS, surgical scar, stria Assessment: hypokalemia bulimia 04/16/20 16:14 Plan: Changed potassium supplementation to K-DUR Added protonix at bedtime Se crackers at dinner (pt request) Maalox during the day as needed for gastric reflux. Continue to monitor Encourage pt to verbalize feelings, see psychiatric service.
[2020-04-16] MEDS: LIDOCAINE PATCH REMOVAL MC SCH ×2 (21:34)
[2020-04-16] MEDS: THIAMINE HCL 100 MG TABLET (FP) PO SCH (21:34)
[2020-04-16] MEDS: MELATONIN 5 MG TABLETS PO SCH (21:34)
[2020-04-16] MEDS: PANTOPRAZOLE 40 MG TABLET PO SCH (21:35)
[2020-04-16] MEDS: SUVOREXANT 20 MG TABLET PO PRN (21:35)
[2020-04-17] MEDS: IBUPROFEN 400 MG TABLET (FP) PO PRN (02:52)
[2020-04-17] MEDS: GABAPENTIN 300 MG CAPSULE PO SCH ×3 (06:08→21:28)
[2020-04-17] MEDS: BUPRENORPHINE/NALOXONE 8 MG/2 MG FILM PACKET SL SCH ×3 (06:08→21:29)
[2020-04-17] MEDS: hydrOXYzine PAMOATE 50 MG CAPSULE (FP) PO PRN ×2 (06:09→21:28)
[2020-04-17] MEDS: PRENATAL VITAMINS W/ FOLIC ACID TABLET (FP) PO SCH (11:13)
[2020-04-17] MEDS: LIDOCAINE 5% TOPICAL PATCH TP SCH ×2 (11:13→11:14)
[2020-04-17] MEDS: METHOCARBAMOL 500 MG TABLET PO SCH ×4 (11:14→21:28)
[2020-04-17] MEDS: POTASSIUM CHLORIDE TABS 20 MEQ TABLET.ER (FP) PO SCH (11:14)
[2020-04-17] MEDS: NICOTINE 7 MG/24 HOURS TOPICAL PATCH TD SCH (11:14)
[2020-04-17] MEDS: MELATONIN 5 MG TABLETS PO SCH (21:27)
[2020-04-17] MEDS: THIAMINE HCL 100 MG TABLET (FP) PO SCH (21:27)
[2020-04-17] MEDS: LIDOCAINE PATCH REMOVAL MC SCH ×2 (21:27)
[2020-04-17] MEDS: SUVOREXANT 20 MG TABLET PO PRN (21:28)
[2020-04-17] MEDS: PANTOPRAZOLE 40 MG TABLET PO SCH (21:28)
[2020-04-18] MEDS: BUPRENORPHINE/NALOXONE 8 MG/2 MG FILM PACKET SL SCH ×3 (06:10→21:41)
[2020-04-18] MEDS: GABAPENTIN 300 MG CAPSULE PO SCH ×3 (06:10→21:38)
[2020-04-18] MEDS: hydrOXYzine PAMOATE 50 MG CAPSULE (FP) PO PRN ×4 (06:11→21:38)
[2020-04-18] MEDS: IBUPROFEN 400 MG TABLET (FP) PO PRN (06:11)
[2020-04-18] MEDS: LIDOCAINE 5% TOPICAL PATCH TP SCH ×2 (09:57)
[2020-04-18] MEDS: PRENATAL VITAMINS W/ FOLIC ACID TABLET (FP) PO SCH (09:57)
[2020-04-18] MEDS: POTASSIUM CHLORIDE TABS 20 MEQ TABLET.ER (FP) PO SCH (09:57)
[2020-04-18] MEDS: METHOCARBAMOL 500 MG TABLET PO SCH ×4 (09:57→21:38)
[2020-04-18] MEDS: NICOTINE 7 MG/24 HOURS TOPICAL PATCH TD SCH (09:58)
[2020-04-18] MEDS ORDERED: MINERAL OIL/PETROLAT/WATER TOPICAL CREAM 113 GM JAR TP PRN (15:33)
[2020-04-18] MEDS: PANTOPRAZOLE 40 MG TABLET PO SCH (21:38)
[2020-04-18] MEDS: SUVOREXANT 20 MG TABLET PO PRN (21:38)
[2020-04-18] MEDS: THIAMINE HCL 100 MG TABLET (FP) PO SCH (21:38)
[2020-04-18] MEDS: LIDOCAINE PATCH REMOVAL MC SCH ×2 (21:38)
[2020-04-18] MEDS: MELATONIN 5 MG TABLETS PO SCH (21:38)
[2020-04-19] MEDS: BUPRENORPHINE/NALOXONE 8 MG/2 MG FILM PACKET SL SCH ×3 (06:54→21:25)
[2020-04-19] MEDS: GABAPENTIN 300 MG CAPSULE PO SCH ×3 (06:54→21:24)
[2020-04-19] MEDS: PRENATAL VITAMINS W/ FOLIC ACID TABLET (FP) PO SCH (10:36)
[2020-04-19] MEDS: NICOTINE 7 MG/24 HOURS TOPICAL PATCH TD SCH (10:36)
[2020-04-19] MEDS: METHOCARBAMOL 500 MG TABLET PO SCH ×4 (10:36→21:24)
[2020-04-19] MEDS: POTASSIUM CHLORIDE TABS 20 MEQ TABLET.ER (FP) PO SCH (10:36)
[2020-04-19] MEDS: LIDOCAINE 5% TOPICAL PATCH TP SCH ×2 (10:37)
--- NOTE | 2020-04-19 14:09 | PN ---
[facility] Progress Note Note: Vital Signs Temperature 97.5 F L 04/19/20 06:16 Pulse Rate 77 04/19/20 06:53 Respiratory Rate 16 04/19/20 06:16 Blood Pressure 109/55 L 04/19/20 06:53 O2 Sat by Pulse Oximetry (%) 99 04/19/20 06:16 Laboratory Last Values Sodium 138 mmol/L (136-145) 04/15/20 08:40 Potassium 3.2 mmol/L (3.5-5.1) L 04/19/20 07:30 Chloride 87 mmol/L (98-107) L 04/15/20 08:40 Carbon Dioxide 43 mmol/L (21-32) H 04/15/20 08:40 Anion Gap 7 MMOL/L (8-16) L 04/15/20 08:40 BUN 26.3 mg/dL (7-18) H 04/15/20 08:40 Creatinine 0.9 mg/dL (0.55-1.3) 04/15/20 08:40 Est GFR (CKD-EPI)AfAm 92.05 04/15/20 08:40 Est GFR (CKD-EPI)NonAf 79.42 04/15/20 08:40 Random Glucose 78 mg/dL (74-106) 04/15/20 08:40 Calcium 9.0 mg/dL (8.5-10.1) 04/15/20 08:40 Total Bilirubin 0.3 mg/dL (0.2-1) 04/13/20 07:25 AST 103 U/L (15-37) H 04/13/20 07:25 ALT 46 U/L (13-61) 04/13/20 07:25 Alkaline Phosphatase 158 U/L (45-117) H 04/13/20 07:25 Total Protein 8.0 g/dl (6.4-8.2) 04/13/20 07:25 Albumin 3.7 g/dl (3.4-5.0) 04/13/20 07:25 asymptomatic patient continues with hypokalemia continue potassium supplement repeat in potassium levels in the morning continue to monitor
[2020-04-19] MEDS: THIAMINE HCL 100 MG TABLET (FP) PO SCH (21:24)
[2020-04-19] MEDS: PANTOPRAZOLE 40 MG TABLET PO SCH (21:24)
[2020-04-19] MEDS: LIDOCAINE PATCH REMOVAL MC SCH ×2 (21:24)
[2020-04-19] MEDS: MELATONIN 5 MG TABLETS PO SCH (21:24)
[2020-04-19] MEDS: hydrOXYzine PAMOATE 50 MG CAPSULE (FP) PO PRN (21:24)
[2020-04-19] MEDS ORDERED: SUVOREXANT 20 MG TABLET PO PRN (22:00)
[2020-04-19] MEDS ORDERED: PT OWN MED DRAWER 7, Y5N ONE (22:26)
[2020-04-20] MEDS: GABAPENTIN 300 MG CAPSULE PO SCH ×3 (06:24→21:53)
[2020-04-20] MEDS: BUPRENORPHINE/NALOXONE 8 MG/2 MG FILM PACKET SL SCH ×3 (06:24→21:53)
[2020-04-20] MEDS: hydrOXYzine PAMOATE 50 MG CAPSULE (FP) PO PRN ×4 (06:24→17:29)
[2020-04-20] MEDS: IBUPROFEN 400 MG TABLET (FP) PO PRN ×2 (06:24→21:55)
[2020-04-20] MEDS: POTASSIUM CHLORIDE TABS 20 MEQ TABLET.ER (FP) PO SCH (10:25)
[2020-04-20] MEDS: PRENATAL VITAMINS W/ FOLIC ACID TABLET (FP) PO SCH (10:25)
[2020-04-20] MEDS: METHOCARBAMOL 500 MG TABLET PO SCH ×4 (10:25→21:53)
[2020-04-20] MEDS: LIDOCAINE 5% TOPICAL PATCH TP SCH ×2 (10:26)
[2020-04-20] MEDS: NICOTINE 7 MG/24 HOURS TOPICAL PATCH TD SCH (10:27)
[2020-04-20] MEDS: THIAMINE HCL 100 MG TABLET (FP) PO SCH (21:53)
[2020-04-20] MEDS: MELATONIN 5 MG TABLETS PO SCH (21:53)
[2020-04-20] MEDS: PANTOPRAZOLE 40 MG TABLET PO SCH (21:53)
[2020-04-20] MEDS: LIDOCAINE PATCH REMOVAL MC SCH ×2 (23:02)
[2020-04-21] MEDS: hydrOXYzine PAMOATE 50 MG CAPSULE (FP) PO PRN ×3 (06:01→13:24)
[2020-04-21] MEDS: IBUPROFEN 400 MG TABLET (FP) PO PRN (06:01)
[2020-04-21] MEDS: GABAPENTIN 300 MG CAPSULE PO SCH ×3 (06:01→21:33)
[2020-04-21] MEDS: BUPRENORPHINE/NALOXONE 8 MG/2 MG FILM PACKET SL SCH ×3 (06:02→21:33)
[2020-04-21] MEDS: PRENATAL VITAMINS W/ FOLIC ACID TABLET (FP) PO SCH (09:49)
[2020-04-21] MEDS: METHOCARBAMOL 500 MG TABLET PO SCH ×4 (09:49→21:34)
[2020-04-21] MEDS: NICOTINE 7 MG/24 HOURS TOPICAL PATCH TD SCH (09:50)
[2020-04-21] MEDS: LIDOCAINE 5% TOPICAL PATCH TP SCH ×2 (09:50)
[2020-04-21] MEDS: POTASSIUM CHLORIDE TABS 20 MEQ TABLET.ER (FP) PO SCH (09:50)
[2020-04-21] MEDS: THIAMINE HCL 100 MG TABLET (FP) PO SCH (21:33)
[2020-04-21] MEDS: PANTOPRAZOLE 40 MG TABLET PO SCH (21:33)
[2020-04-21] MEDS: LIDOCAINE PATCH REMOVAL MC SCH ×2 (21:33)
[2020-04-21] MEDS: MELATONIN 5 MG TABLETS PO SCH (21:34)
[2020-04-22] MEDS: BUPRENORPHINE/NALOXONE 8 MG/2 MG FILM PACKET SL SCH ×3 (06:28→21:39)
[2020-04-22] MEDS: GABAPENTIN 300 MG CAPSULE PO SCH ×3 (06:28→21:37)
[2020-04-22] MEDS: IBUPROFEN 400 MG TABLET (FP) PO PRN (06:28)
[2020-04-22] MEDS: hydrOXYzine PAMOATE 50 MG CAPSULE (FP) PO PRN ×4 (06:28→21:37)
[2020-04-22 07:15] VITALS: PULSE 71
[2020-04-22] MEDS: POTASSIUM CHLORIDE TABS 20 MEQ TABLET.ER (FP) PO SCH (09:57)
[2020-04-22] MEDS: METHOCARBAMOL 500 MG TABLET PO SCH ×4 (09:57→21:37)
[2020-04-22] MEDS: PRENATAL VITAMINS W/ FOLIC ACID TABLET (FP) PO SCH (09:57)
[2020-04-22] MEDS: LIDOCAINE 5% TOPICAL PATCH TP SCH ×2 (09:58)
[2020-04-22] MEDS: NICOTINE 7 MG/24 HOURS TOPICAL PATCH TD SCH (09:58)
--- NOTE | 2020-04-22 13:11 | PN ---
[facility] Progress Note Note: Laboratory Tests 04/13/20 04/15/20 04/16/20 07:25 08:40 08:15 Sodium 138 138 Potassium 3.0 L 2.9 L* 2.9 L* Chloride 88 L 87 L Carbon Dioxide 42 H 43 H Anion Gap 8 7 L BUN 23.8 H 26.3 H Creatinine 0.9 0.9 Est GFR (CKD-EPI)AfAm 92.05 92.05 Est GFR (CKD-EPI)NonAf 79.42 79.42 Random Glucose 90 78 Calcium 9.2 9.0 Total Bilirubin 0.3 AST 103 H ALT 46 Alkaline Phosphatase 158 H Total Protein 8.0 Albumin 3.7 04/19/20 04/20/20 07:30 07:30 Sodium Potassium 3.2 L 3.3 L Chloride Carbon Dioxide Anion Gap BUN Creatinine Est GFR (CKD-EPI)AfAm Est GFR (CKD-EPI)NonAf Random Glucose Calcium Total Bilirubin AST ALT Alkaline Phosphatase Total Protein Albumin POTASSIUM LEVEL 3.3 ON 04/20/2020. PATIENT IS ASYMPTOMATIC, WILL REPEAT LEVEL NOW PATIENT SCHEDULED FOR D/C IN AM.
[2020-04-22] MEDS: LIDOCAINE PATCH REMOVAL MC SCH ×2 (21:37)
[2020-04-22] MEDS: MELATONIN 5 MG TABLETS PO SCH (21:37)
[2020-04-22] MEDS: THIAMINE HCL 100 MG TABLET (FP) PO SCH (21:37)
[2020-04-22] MEDS: PANTOPRAZOLE 40 MG TABLET PO SCH (21:37)
[2020-04-22] MEDS ORDERED: SUVOREXANT 20 MG TABLET PO PRN (22:00)
[2020-04-23] MEDS: hydrOXYzine PAMOATE 50 MG CAPSULE (FP) PO PRN ×2 (06:14→09:28)
[2020-04-23] MEDS: BUPRENORPHINE/NALOXONE 8 MG/2 MG FILM PACKET SL SCH (06:14)
[2020-04-23] MEDS: GABAPENTIN 300 MG CAPSULE PO SCH (06:14)
[2020-04-23] MEDS: IBUPROFEN 400 MG TABLET (FP) PO PRN (06:14)
[2020-04-23 07:01] VITALS: BP 108/66; TEMP 98.4
--- NOTE | 2020-04-23 08:41 | DS ---
[facility] Rehab Discharge Summary - [facility] Rehab Discharge Summary Admission Date: 04/03/20 Discharge Date: 04/23/20 - History Present History: Alcohol dependence, Cocaine dependence Pertinent Past History: 39 Y.O. FEMALE WITH OPIOID/ ALCOHOL / BENZO-KLONOPIN DEPENDENCE. LAST HERE ABOUT 5 MONTHS AGO , COMPLETED DETOX/ REHAB. REPORTS RELAPSING about 46 days later. SHE IS ON SBX MGMT. CLIENT IS ON 24 MG DAILY. REPORTS OVER USING AND IS OUT OF RX. SHE REPORTS DAILY ALCOHOL INTAKE . LAST USE EARLIER TODAY. + EYE.HX/O IVDU BUT PRESENTLY DENIES. DENIES HX/O DRUG OVERDOSE, SEIZURES, BLACKOUTS. LIVES ALONE, UNEMPLOYED, ACS CASE - Discharge Physical Exam Vital Signs: Vital Signs Temperature 98.4 F 04/23/20 07:00 Pulse Rate 71 04/23/20 07:00 Respiratory Rate 18 04/23/20 07:00 Blood Pressure 108/66 04/23/20 07:00 O2 Sat by Pulse Oximetry (%) 97 04/23/20 07:00 Pertinent Admission Physical Exam Findings: Physical General Appearance: No apparent distress HEENTM: Normocephalic, Respiratory: No Respiratory Distress, No Accessory Muscle Use Neck: Supple, Trachea in good position Cardiology:S1, S2, Tachycardia Abdominal: +Bowel Sounds, Non Tender, Soft Musculoskeletal: full range of Motion, Gait Steady - Treatment Discharge Condition: Outpatient referral accepted (medically stable for discharge.Patient referred to [facility].) Hospital Course: Patient attended groups, had 1:1 with her counselor, was seen by the psychiatric service. She had a low potassium level while in rehab and was supplemented with KDUR. Her potassium level upon discharge was 3.5. She had no other acute or urgent medical problems while in rehab. - Medication Discharge Medications: Ambulatory Orders Sertraline HCl [Zoloft -] 50 mg PO DAILY #30 tablet 08/25/14 traZODone HCL [Desyrel -] 50 mg PO HS #30 tablet 08/25/14 Albuterol Sulfate Inhaler - [Ventolin HFA Inhaler -] 2 inh IH Q4H PRN #1 inh 09/28/19 Buprenorphine/Naloxone [Suboxone 8Mg/2Mg Sl Film -] 1 each SL TID #21 film MDD 24MG 04/22/20 Gabapentin [Neurontin -] 300 mg PO Q8H #30 capsule 04/22/20 - Medication-Assisted Treatment (MAT) Medication-Assisted Treatment (MAT): Yes Medication Prescribed: Buprenorphine MAT Follow-up Referral: Will go to [facility]. - Discharge Instructions Diet, activity, other medical instructions: Diet: as tolerated Activity: as tolerated Other medical instructions: Please follow up with aftercare referral. - Diagnosis (1) Alcohol dependence Current Visit: Yes Status: Chronic Qualifiers: Substance use status: uncomplicated Qualified Code(s): F10.20 - Alcohol dependence, uncomplicated (2) Cocaine dependence Current Visit: Yes Status: Chronic Qualifiers: Substance use status: uncomplicated Qualified Code(s): F14.20 - Cocaine dependence, uncomplicated (3) Opioid dependence on agonist therapy Current Visit: No Status: Chronic - Follow-up Referral Minutes to complete discharge: 15 - AMA Did Patient Leave Against Medical Advice: No
[2020-04-23] MEDS: NICOTINE 7 MG/24 HOURS TOPICAL PATCH TD SCH (09:28)
[2020-04-23] MEDS: POTASSIUM CHLORIDE TABS 20 MEQ TABLET.ER (FP) PO SCH (09:28)
[2020-04-23] MEDS: LIDOCAINE 5% TOPICAL PATCH TP SCH ×2 (09:28)
[2020-04-23] MEDS: PRENATAL VITAMINS W/ FOLIC ACID TABLET (FP) PO SCH (09:28)
[2020-04-23] MEDS: METHOCARBAMOL 500 MG TABLET PO SCH (09:31)
[2020-04-23] MEDS ORDERED: PT OWN MED DRAWER 7, Y5N ONE (09:35)
== END 2020-04-23 10:03 | disposition home or self-care (01) | DRG 772 ==
LOC: YASAS 12:26 → Y3W 12:27
PROVIDERS: ADMIT Allergy & Immunology; ATTEND Allergy & Immunology
PROC: HZ42ZZZ Group Counseling for Substance Abuse Treatment, Cognitive-Behavioral (ICD-10-PCS; principal; 2020-04-03)
DX: F11.20 Opioid dependence, uncomplicated (principal); F10.20 Alcohol dependence, uncomplicated; F13.20 Sedative, hypnotic or anxiolytic dependence, uncomplicated; F14.20 Cocaine dependence, uncomplicated; F17.210 Nicotine dependence, cigarettes, uncomplicated; F50.2 Bulimia nervosa; F19.282 Other psychoactive substance dependence with psychoactive substance-induced sleep disorder; F19.280 Other psychoactive substance dependence with psychoactive substance-induced anxiety disorder; F39 Unspecified mood [affective] disorder; F43.10 Post-traumatic stress disorder, unspecified; Z68.25 Body mass index [BMI] 25.0-25.9, adult; E87.6 Hypokalemia; D64.9 Anemia, unspecified; G47.00 Insomnia, unspecified; R94.5 Abnormal results of liver function studies; M17.11 Unilateral primary osteoarthritis, right knee; M19.211 Secondary osteoarthritis, right shoulder; J45.909 Unspecified asthma, uncomplicated; B18.2 Chronic viral hepatitis C; Z62.810 Personal history of physical and sexual abuse in childhood; Z96.653 Presence of artificial knee joint, bilateral; Z91.018 Allergy to other foods; Z56.0 Unemployment, unspecified
CPT/HCPCS: 36415; 80048; 80053; 84132